=== PATIENT | male | born 1975 | race Caucasian/White ===

== ENCOUNTER → 2020-05-20 13:07 | Outpatient (BNVA) | payer MEDICAID, SELFPAY | PROVIDERS: PCP Internal Medicine; Visit Provider Internal Medicine | DX: F11.20 Opioid dependence, uncomplicated (principal) | CPT/HCPCS: 80305; 99212 ==

== ENCOUNTER 2020-05-28 22:52 | Emergency (ER) | payer MEDICAID, SELFPAY ==
[2020-05-28 23:12] VITALS: BP 102/60; BP 118/68; PULSE 75; PULSE 77; RESP 17; TEMP 37; O2SAT 95; O2SAT 99; BMI 28.1
--- NOTE | 2020-05-28 23:22 | ED_ITS ---
HPI - Overdose General Chief Complaint: Overdose Stated Complaint: OVERDOSE,4 MG NARCAN Time Seen by Provider: 05/28/20 23:13 Source: EMS Mode of arrival: EMS Limitations: altered mental status History of Present Illness HPI Narrative: 45-year-old male presents via EMS with overdose, given Narcan. patient reports to use 5 bags of heroin prior to arrival. complaint: accidental overdose Onset (ago): minute(s) ( Just prior to arrival) Intent: unknown Treatments Prior to Arrival: narcan Related Data Home Medications Medication Instructions Recorded Confirmed acetaminophen 650 mg 650 mg PO Q8H 04/06/20 05/20/20 tablet,extended release albuterol sulfate 90 mcg/actuation 2 puff INHALATION Q6H PRN 04/06/20 05/20/20 aerosol inhaler amlodipine 5 mg tablet 5 mg PO DAILY 04/06/20 05/20/20 aspirin 81 mg tablet,delayed 81 mg PO DAILY 04/06/20 05/20/20 release buprenorphine 8 mg-naloxone 2 mg 2 film SUBLINGUAL DAILY 04/06/20 05/20/20 sublingual film clonidine HCl 0.1 mg tablet 0.1 mg PO TID 04/06/20 05/20/20 fluoxetine 60 mg tablet 60 mg PO DAILY 04/06/20 05/20/20 hydroxyzine HCl 25 mg tablet 25 mg PO TID PRN 04/06/20 05/20/20 metformin 1,000 mg tablet 1,000 mg PO BID 04/06/20 05/20/20 mirtazapine 30 mg tablet 30 mg PO BEDTIME 04/06/20 05/20/20 nicotine (polacrilex) 4 mg gum 4 mg BUCCAL Q2H 04/06/20 05/20/20 Previous Rx's Medication Instructions Recorded buprenorphine 8 mg-naloxone 2 mg 2 film SUBLINGUAL DAILY 14 Days 05/20/20 sublingual film #28 ea doxycycline monohydrate 100 mg PO BID 14 Days #28 cap 05/29/20 Allergies Allergy/AdvReac Type Severity Reaction Status Date / Time No Known Allergies Allergy Unverified 03/26/20 19:41 [No Known Allergies*] Review of Systems 2 Review of Systems: Yes Unobtainable due to mental status PMFSH Past Medical History Attestation statement: The following information was validated with the patient. Source: unable to obtain Medical History Opioid use disorder Family History Family History Father Liver problem Diabetes mellitus Kidney problem Heart failure CVD (cardiovascular disease) HTN (hypertension) Paternal Uncle Liver problem HTN (hypertension) Diabetes mellitus Cancer Maternal Aunt Kidney failure HTN (hypertension) Diabetes mellitus Mother No problems noted. Sister No problems noted. Social History Social History Alcohol intake: unknown Smoking Status: Unknown if ever smoked Use of substances other than those prescribed or required for medical reasons: Yes Substance Use Type: Heroin Substance Use Frequency: Chronic Longstanding Last Used Substance: Just Prior to Admission Advance Directives: No Advance Directives Information Provided: No Physical Exam Vital Signs: Vital Signs: Last Vital Signs Temp 98.6 F 05/29/20 00:00 Pulse 69 05/29/20 00:00 Resp 14 05/29/20 00:00 BP 108/62 05/29/20 00:00 Pulse Ox 95 05/29/20 00:00 Body Mass Index 28.1 Appearance: Alert. No acute distress. Eyes: Pupils equal pinpoint, round and reactive to light. ENT: Pharynx normal. Neck: Normal inspection. Neck supple. CVS: Normal heart rate and rhythm. Pulses normal. Respiratory: No respiratory distress. Breath sounds normal. Abdomen: Soft and nontender. Skin: Skin warm and dry. Normal skin color. Normal skin turgor. Extremities: No lower extremity edema. Neuro: No motor deficit. No sensory deficit. Course Course Course Narrative: 45-year-old male opioid overdose received 4 mg of Narcan on transit, alert with palpation, order for IV Narcan. Patient does admit to using 5 bags of heroin. Patient does have 3 wounds on the left medial forearm, 2 open, 1 draining abscess, these wounds are chronic and he was treated here on March 15, 2020 and send to [facility]. He has been seen by Dr Kyle on May 20 which stated that he has been doing well on Suboxone. We will order CBC, Chem 7, give Zosyn IV. At 1:11 a.m. patient is alert oriented x4, answering questions politely and appropriately, Blood pressure 105/70, heart rate 79, respiration rate 18 even unlabored, able to eat and drink without difficulty. he was given information for detox facilities, we will refer him to Wound Care for his chronic wounds. He will be discharged with p.o. doxycycline. Patient verbalizes understanding of and agrees to plan of care to discharge home. MDM - Overdose Differential Diagnosis Differential diagnosis: Likely poisoning by opiate or related narcotic and drug overdose Medical Records Attestation: I reviewed the patient's medical records. Lab Data Attestation: I reviewed the patient's lab results. Result diagrams: 05/29/20 00:06 05/29/20 00:06 Labs: Lab Results 05/29/20 05/29/20 Range/Units 00:06 00:06 WBC 3.2 L (4.8-10.8) X10*3/uL RBC 3.95 L (4.60-5.80) X10*6/uL Hgb 11.4 L (14.0-18.0) g/dl Hct 34.8 L (42-52) % MCV 88.1 (80-98) fL MCH 28.9 (27.0-33.0) pg MCHC 32.8 (31.0-36.0) g/dl RDW 14.9 (11.0-16.0) % Plt Count 90 L (160-400) X10*3/uL MPV 10.1 (9.4-12.4) fL Immature Gran % (Auto) 0.3 (0.0-0.4) % Neut % (Auto) 61.5 (45-73) % Lymph % (Auto) 23.9 (20-40) % [place] % (Auto) 11.8 H (2-11) % Eos % (Auto) 2.5 (0-4) % Baso % (Auto) 0.0 (0-2) % Lymph # (Auto) 0.8 L (1.2-4.9) X10*3/uL [place] # (Auto) 0.4 (0.1-1.2) X10*3/uL Eos # (Auto) 0.1 (0.0-0.4) X10*3/uL Baso # (Auto) 0.0 (0.0-0.2) X10*3/uL Abs Immat Gran (auto) 0.01 (0.00-0.03) X10*3/uL Absolute Neuts (auto) 2.0 (2.0-8.3) X10*3/uL Absolute Nucleated RBC 0.000 (0.0-0.012) X10*3/uL Nucleated RBC % (auto) 0.0 (0.0-0.2) /100WBC Sodium 141 (135-145) mmol/L Potassium 4.0 (3.3-5.1) mmol/l Chloride 107 (96-108) mmol/L Carbon Dioxide 26 (22-29) mmol/L Anion Gap 12 (12-20) BUN 11 (9-16) mg/dL Creatinine 0.83 (0.5-1.4) mg/dL Estim Creat Clear Calc 133.9 Estimated GFR > 60 Random Glucose 170 H (60-115) mg/dL Calcium 8.2 L (8.4-10.2) mg/dL Discharge Plan Discharge Clinical Impression: Opioid use disorder Patient Disposition: Home, Self-Care Instructions: Wound Infection (ED), Wound Healing and Your Diet (ED), Opioid Use Disorder (ED) Additional Instructions: you were evaluated for accidental heroin overdose. Please consider detox. For your chronic wounds to left forearm please call wound care center for an appointment. WOUND CARE. [phone] [address] Thank you for choosing this emergency department for evaluation. Please follow-up with primary care physician as needed. Return to the emergency department for any new, concerning, or worsening symptoms. Prescriptions: New doxycycline monohydrate 100 mg capsule 100 mg PO BID 14 Days Qty: 28 RF: 0 No Action buprenorphine-naloxone [Suboxone] 8-2 mg film 2 film sublingual DAILY 14 Days Qty: 28 RF: 0 buprenorphine-naloxone [Suboxone] 8-2 mg film 2 film sublingual DAILY RF: 0 fluoxetine 60 mg tablet 60 mg PO DAILY RF: 0 mirtazapine [Remeron] 30 mg tablet 30 mg PO BEDTIME RF: 0 nicotine (polacrilex) [Nicorette] 4 mg gum 4 mg buccal Q2H RF: 0 albuterol sulfate 90 mcg/actuation HFA aerosol inhaler 2 puff inhalation Q6H PRNRF: 0 aspirin [Adult Low Dose Aspirin] 81 mg tablet,delayed release (DR/EC) 81 mg PO DAILY RF: 0 amlodipine 5 mg tablet 5 mg PO DAILY RF: 0 metformin 1,000 mg tablet 1,000 mg PO BID RF: 0 acetaminophen [Tylenol 8 Hour] 650 mg tablet extended release 650 mg PO Q8H RF: 0 clonidine HCl 0.1 mg tablet 0.1 mg PO TID RF: 0 hydroxyzine HCl 25 mg tablet 25 mg PO TID PRNRF: 0
[2020-05-28] MEDS: Naloxone HCl 0.4 MG/ML VIAL IVPUSH (23:56)
[2020-05-28] MEDS: Piperacillin Sodium/Tazobactam 3.375 GM in 0.9 % Sodium Chloride 50 ML IV (23:57)
[2020-05-29] VITALS: BP 108/62; PULSE 69; RESP 14; TEMP 37; O2SAT 95
[2020-05-29 00:14] LABS: MANUAL DIFF FLAG NO
[2020-05-29 00:16] LABS: Eosinophils Absolute Auto 0.1 X10*3/uL (0.0-0.4); Eosinophils Percent Auto 2.5 % (0-4); Hematocrit 34.8 % (42-52); Hemoglobin 11.4 g/dl (14.0-18.0); Imm Gran Abs Auto 0.01 X10*3/uL (0.00-0.03); Imm Gran Pct Auto 0.3 % (0.0-0.4); Lymphocytes Absolute Auto 0.8 X10*3/uL (1.2-4.9); Lymphocytes Percent Auto 23.9 % (20-40); Mean Corpuscular HGB Conc 32.8 g/dl (31.0-36.0); Mean Corpuscular Hemoglobin 28.9 pg (27.0-33.0); Mean Corpuscular Volume 88.1 fL (80-98); Mean Platelet Volume 10.1 fL (9.4-12.4); Monocytes Absolute Auto 0.4 X10*3/uL (0.1-1.2); Monocytes Percent Auto 11.8 % (2-11); Neutrophils Percent Auto 61.5 % (45-73); Red Blood Count 3.95 X10*6/uL (4.60-5.80); Red Cell Distribution Width 14.9 % (11.0-16.0); White Blood Count 3.2 X10*3/uL (4.8-10.8)
[2020-05-29 00:21] LABS: Platelet Count 90 X10*3/uL (160-400)
[2020-05-29 00:39] LABS: Anion Gap 12 (12-20); Blood Urea Nitrogen 11 mg/dL (9-16); Calcium 8.2 mg/dL (8.4-10.2); Carbon Dioxide 26 mmol/L (22-29); Chloride 107 mmol/L (96-108); Creatinine Clr Calc Pharmacy 133.9; Estimated Glomerular Filt Rate > 60; Glucose Random 170 mg/dL (60-115); Sodium 141 mmol/L (135-145)
[2020-05-29 01:34] VITALS: BP 111/54; PULSE 74; RESP 12; O2SAT 92
== END 2020-05-29 01:54 | disposition home or self-care (01) ==
PROVIDERS: Nurse Practitioner Family; Emergency Provider Emergency Medicine Emergency Medical Services; PCP Internal Medicine
DX: T40.1X1A Poisoning by heroin, accidental (unintentional), initial encounter (principal); Y92.9 Unspecified place or not applicable; F11.10 Opioid abuse, uncomplicated; Z71.51 Drug abuse counseling and surveillance of drug abuser; Z79.899 Other long term (current) drug therapy
CPT/HCPCS: 36415; 80048; 85025; 96365; 96375; 99284; 99285; J2543

== ENCOUNTER → 2020-06-03 13:55 | Outpatient (BNVA) | payer MEDICAID, SELFPAY | PROVIDERS: Visit Provider Internal Medicine | DX: F11.20 Opioid dependence, uncomplicated (principal) | CPT/HCPCS: 80305; 99212 ==

== ENCOUNTER 2020-06-13 21:33 | Emergency (ER) | payer MEDICAID, SELFPAY ==
[2020-06-13 21:38] VITALS: BP 160/92; PULSE 97; RESP 18; TEMP 37.3; O2SAT 95; BMI 32.4
--- NOTE | 2020-06-13 22:49 | PC.NURSE ---
PT HAS BILATERAL OPEN AREA TO LOWER ARM FROM INJECTION SITE FROM COCAINE USE. 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
--- NOTE | 2020-06-13 23:02 | ED_ITS ---
HPI - Wound/Laceration General Chief Complaint: Wound/Laceration Stated Complaint: Red Inflamed skin Time Seen by Provider: 06/13/20 22:56 Source: patient Mode of arrival: ambulatory Limitations: no limitations History of Present Illness HPI narrative: 45-year-old male with significant history of substance abuse, abscesses, medication noncompliance presents with multiple abscesses to right and left arm. He has not picked up his medications from his prior visit for similar concerns. Onset (ago): month(s) Patient tetanus UTD: Yes Context: other ( cocaine injection sites) Associated symptoms: pain Related Data Home Medications Medication Instructions Recorded Confirmed acetaminophen 650 mg 650 mg PO Q8H 04/06/20 05/20/20 tablet,extended release albuterol sulfate 90 mcg/actuation 2 puff INHALATION Q6H PRN 04/06/20 05/20/20 aerosol inhaler amlodipine 5 mg tablet 5 mg PO DAILY 04/06/20 05/20/20 aspirin 81 mg tablet,delayed 81 mg PO DAILY 04/06/20 05/20/20 release buprenorphine 8 mg-naloxone 2 mg 2 film SUBLINGUAL DAILY 04/06/20 05/20/20 sublingual film clonidine HCl 0.1 mg tablet 0.1 mg PO TID 04/06/20 05/20/20 fluoxetine 60 mg tablet 60 mg PO DAILY 04/06/20 05/20/20 hydroxyzine HCl 25 mg tablet 25 mg PO TID PRN 04/06/20 05/20/20 metformin 1,000 mg tablet 1,000 mg PO BID 04/06/20 05/20/20 mirtazapine 30 mg tablet 30 mg PO BEDTIME 04/06/20 05/20/20 nicotine (polacrilex) 4 mg gum 4 mg BUCCAL Q2H 04/06/20 05/20/20 Previous Rx's Medication Instructions Recorded doxycycline monohydrate 100 mg PO BID 14 Days #28 cap 05/29/20 buprenorphine 8 mg-naloxone 2 mg 2 film SUBLINGUAL DAILY 14 Days 06/03/20 sublingual film #28 ea doxycycline monohydrate 100 mg PO BID 14 Days #28 tab 06/13/20 Allergies Allergy/AdvReac Type Severity Reaction Status Date / Time No Known Allergies Allergy Verified 06/13/20 21:38 [No Known Allergies*] Review of Systems Review of Systems: Constitutional: No Fever, No Chills ENT/Mouth: No Ear Pain, No Hoarseness, No sore throat Eyes: No Eye Pain, No Swelling, No Redness, No Foreign Body Cardiovascular: No Chest Pain, No SOB Respiratory: No Cough, No Dyspnea Gastrointestinal: No Nausea, No Vomiting, No Diarrhea, No abdominal Pain Genitourinary: No Dysuria, No Hematuria Musculoskeletal: positive joint pain, No Myalgias, No Joint Swelling Skin: multiple skin wounds and abscesses from injection sites, No rash Neuro: No Weakness, No Numbness, No Paresthesias, No Loss of Consciousness, No Dizziness, No Headache Psych: No Anxiety/Panic, No Depression Heme/Lymph: no easy bruising, no Lymphadenopathy Endocrine: No Polyuria, No Polydipsia Yes all other systems are reviewed and are negative [facility] Past Medical History Attestation statement: The following information was validated with the patient. Source: old records reviewed Medical History Advanced hepatic cirrhosis Anxiety Depression Diabetes HTN (hypertension) Opioid use disorder Family History Family History Father Liver problem Diabetes mellitus Kidney problem Heart failure CVD (cardiovascular disease) HTN (hypertension) Paternal Uncle Liver problem HTN (hypertension) Diabetes mellitus Cancer Maternal Aunt Kidney failure HTN (hypertension) Diabetes mellitus Mother No problems noted. Sister No problems noted. Social History Social History Alcohol intake: unknown Smoking Status: Unknown if ever smoked Substance Use Type: Heroin Advance Directives: No Advance Directives Information Provided: No Physical Exam Vital Signs: Vital Signs: Last Vital Signs Temp 99.2 F 06/13/20 21:38 Pulse 97 06/13/20 21:38 Resp 18 06/13/20 21:38 BP 160/92 H 06/13/20 21:38 Pulse Ox 95 06/13/20 21:38 Body Mass Index 32.4 Appearance: Alert. Oriented X3. mild distress. Eyes: Pupils equal, round and reactive to light. ENT: Pharynx normal. Neck: Normal inspection. Neck supple. CVS: Normal heart rate and rhythm. Pulses normal. Respiratory: No respiratory distress. Breath sounds normal. Abdomen: Soft and nontender. Skin: multiple abscesses to bilateral forearms with cellulitis Extremities: No lower extremity edema. Neuro: No motor deficit. No sensory deficit. Course Course Course Narrative: 45-year-old male presents with multiple abscesses on bilateral forearms from injecting cocaine. He admits to not taking the medications or picking them up from the pharmacy when he was here on May 28. he also did not report to the wound clinic as directed. He appears nontoxic, is afebrile. He is asking for antibiotics. plan is to treat with doxycycline. Patient verbalized understanding of and agrees to plan of care to discharge home. MDM - Wound/Laceration Differential Diagnosis Differential diagnosis: Likely abscess Medical Records Attestation: I reviewed the patient's medical records. Lab Data Attestation: I reviewed the patient's lab results. Discharge Plan Discharge Clinical Impression: Opioid use disorder, Abscess Patient Disposition: Home, Self-Care Instructions: Cellulitis (ED) Additional Instructions: please take doxycycline as directed. Please consider detox. Thank you for choosing this emergency department for evaluation. Please follow-up with primary care physician as needed. Return to the emergency department for any new, concerning, or worsening symptoms. Prescriptions: New doxycycline monohydrate 100 mg tablet 100 mg PO BID 14 Days Qty: 28 RF: 0 No Action doxycycline monohydrate 100 mg capsule 100 mg PO BID 14 Days Qty: 28 RF: 0 buprenorphine-naloxone [Suboxone] 8-2 mg film 2 film sublingual DAILY 14 Days Qty: 28 RF: 0 buprenorphine-naloxone [Suboxone] 8-2 mg film 2 film sublingual DAILY RF: 0 fluoxetine 60 mg tablet 60 mg PO DAILY RF: 0 mirtazapine [Remeron] 30 mg tablet 30 mg PO BEDTIME RF: 0 nicotine (polacrilex) [Nicorette] 4 mg gum 4 mg buccal Q2H RF: 0 albuterol sulfate 90 mcg/actuation HFA aerosol inhaler 2 puff inhalation Q6H PRNRF: 0 aspirin [Adult Low Dose Aspirin] 81 mg tablet,delayed release (DR/EC) 81 mg PO DAILY RF: 0 amlodipine 5 mg tablet 5 mg PO DAILY RF: 0 metformin 1,000 mg tablet 1,000 mg PO BID RF: 0 acetaminophen [Tylenol 8 Hour] 650 mg tablet extended release 650 mg PO Q8H RF: 0 clonidine HCl 0.1 mg tablet 0.1 mg PO TID RF: 0 hydroxyzine HCl 25 mg tablet 25 mg PO TID PRNRF: 0
[2020-06-13 23:31] VITALS: BP 138/89; PULSE 90; RESP 16; TEMP 37.2; O2SAT 99
== END 2020-06-13 23:39 | disposition home or self-care (01) ==
PROVIDERS: Emergency Provider Emergency Medicine Emergency Medical Services; PCP Internal Medicine
DX: L02.414 Cutaneous abscess of left upper limb (principal); L02.413 Cutaneous abscess of right upper limb; F14.10 Cocaine abuse, uncomplicated; Z91.14 Patient's other noncompliance with medication regimen; E11.9 Type 2 diabetes mellitus without complications; I10 Essential (primary) hypertension
CPT/HCPCS: 99283; 99284

== ENCOUNTER → 2020-06-17 14:15 | Outpatient (BNVA) | payer MEDICAID, SELFPAY | PROVIDERS: Visit Provider Internal Medicine | DX: F11.99 Opioid use, unspecified with unspecified opioid-induced disorder (principal) ==

== ENCOUNTER → 2020-07-01 10:46 | Outpatient (BNVA) | payer MEDICAID, SELFPAY | PROVIDERS: Visit Provider Internal Medicine | DX: Z76.89 Persons encountering health services in other specified circumstances (principal) ==

== ENCOUNTER → 2020-07-15 11:05 | Outpatient (BNVA) | payer MEDICAID, SELFPAY | PROVIDERS: Visit Provider Internal Medicine | DX: Z76.89 Persons encountering health services in other specified circumstances (principal) ==

== ENCOUNTER → 2020-07-29 09:57 | Outpatient (BNVA) | payer MEDICAID, SELFPAY | PROVIDERS: Visit Provider Internal Medicine | DX: F11.99 Opioid use, unspecified with unspecified opioid-induced disorder (principal) ==

== ENCOUNTER → 2020-08-19 10:41 | Outpatient (BNVA) | payer MEDICAID, SELFPAY | PROVIDERS: Visit Provider Internal Medicine | DX: Z13.89 Encounter for screening for other disorder (principal) | CPT/HCPCS: 99211 ==

== ENCOUNTER → 2020-09-07 14:33 | Outpatient (BNVA) | payer MEDICAID, SELFPAY | PROVIDERS: Visit Provider Internal Medicine | DX: F11.99 Opioid use, unspecified with unspecified opioid-induced disorder (principal) | CPT/HCPCS: 80305; 99212 ==

== ENCOUNTER 2020-09-13 09:29 | Emergency (ER) | payer MEDICAID, SELFPAY ==
--- NOTE | ~2020-09-13 | CT_ITS ---
EXAMINATION: CT FOREARM WITH CONTRAST, RIGHT CLINICAL INFORMATION: Cellulitis/skin breakdown. Rule out deep abscess. COMPARISON: None TECHNIQUE: Multidetector volumetric imaging of both forearms is performed after administration of 75 mL of Omnipaque 350 IV contrast. Coronal and sagittal reformatted images are obtained and reviewed. This CT examination was performed using dose optimization techniques as appropriate, variously including the following: *Automated exposure control *Adjustment of mA and/or kV according to patient size (this includes techniques or standardized protocols for targeted exams where dose is matched to indication/reason for exam; i.e. extremities or head) *Use of iterative reconstruction technique DLP: 235 mGy-cm FINDINGS: For documentation purposes, the patient's IV is in the left arm. There is a beaded bracelet at the right wrist. There is superficial edema involving the entirety of both forearms. In the right forearm, there is focal ulceration of the dorsal skin, as seen on series 9 image 43. Multiple foci of gas are seen in the subcutaneous tissue, as seen on series 9 image 49. There is no drainable fluid collection at this location. There is prominent skin thickening with prominent edema. At the more proximal forearm, near the elbow there is additional focal prominent soft tissue swelling, at the radial aspect. There is a small collection seen at this location. This measures 1.5 x 0.9 by approximately 0.8 cm. This is best seen on series 11 image 106. Throughout the left forearm there is superficial edema. There is skin irregularity along the peripheral aspect of the midforearm. No soft tissue gas. Prominent edema at this level. There is no drainable fluid collection. At the more proximal forearm near the radial aspect of the elbow there is more focal soft tissue swelling with no drainable collection seen. This is evident on series 7 image 496 and series 12 image 48. There is no deep muscular edema or collection identified in either forearm. There is no fracture. No osseous erosion. Appropriate alignment of both elbows. CT/CT forearm RT w con IMPRESSION: 1. Superficial ulceration at the mid aspect of the right forearm with soft tissue gas seen in the subcutaneous tissues. No drainable fluid collection at this location. 2. Small fluid collection in the subcutaneous tissues at the more proximal aspect of the right forearm near the radial aspect of the elbow. 3. Diffuse soft tissue edema throughout both forearms. No drainable collections on the left.
--- NOTE | ~2020-09-13 | XR_ITS ---
EXAMINATION: XR CHEST CLINICAL INFORMATION: Fever. COMPARISON: None TECHNIQUE: Frontal view of the chest was obtained. FINDINGS: The lungs are well-expanded and clear of acute process. The heart size and pulmonary vascularity is normal. No gross bony abnormality seen. XR/XR chest 1V IMPRESSION: Unremarkable chest exam.
[2020-09-13 09:37] VITALS: BP 133/74; PULSE 98; RESP 16; TEMP 38.2; O2SAT 97; BMI 28.5
--- NOTE | 2020-09-13 10:28 | ECG_ITS ---
Test Reason : WEAKNESS Blood Pressure : / mmHG Vent. Rate : 085 BPM Atrial Rate : 085 BPM P-R Int : 154 ms QRS Dur : 094 ms QT Int : 386 ms P-R-T Axes : 064 069 036 degrees QTc Int : 459 ms Normal sinus rhythm Normal ECG When compared with ECG of 15-FEB-2020 00:05, No significant change was found Referred By: Demar Guerra Electronically Signed By:YOUNG ADAMS
--- NOTE | 2020-09-13 10:28 | ED.SKABFB ---
HPI - Skin/Abscess/Foreign Bdy General Chief complaint: Skin/Abscess/Foreign Body Stated complaint: BOTH ARM INFECTION Time Seen by Provider: 09/13/20 10:27 Source: patient Mode of arrival: ambulatory Limitations: no limitations History of Present Illness HPI narrative: Pleasant but unfortunate 45-year-old male with history of anxiety disorder, depression, diabetes, hypertension and polysubstance abuse by way of injection leading to history of hepatitis status post treatment and advanced hepatic cirrhosis presenting today with complaint of bilateral upper arm wounds and redness going on for past several weeks worsened over past couple days states he has had worsening of the wounds and now redness with feeling of chills, cold sweats and subjective fevers. States last used heroin several hours prior to arrival nasally. States overall he feels unwell. He does report that the wound started after injecting mixture of heroin and cocaine into his bilateral upper extremities which led to skin breakdown and he does intermittently pick at this. MD complaint: rash and abscess/boil Onset (ago): week(s) Tetanus up to date: yes Location: LUE and RUE Severity: moderate Quality: aching and constant Pain Consistency: constant Relieving factors: none Associated symptoms: fever, chills and myalgias Treatments prior to arrival: none Related Data Home Medications Medication Instructions Recorded Confirmed albuterol sulfate 90 mcg/actuation 2 puff INHALATION Q6H PRN 04/06/20 09/13/20 aerosol inhaler amlodipine 5 mg tablet 5 mg PO DAILY 04/06/20 09/13/20 aspirin 81 mg tablet,delayed 81 mg PO DAILY 04/06/20 09/13/20 release buprenorphine 8 mg-naloxone 2 mg 2 film SUBLINGUAL DAILY 04/06/20 09/13/20 sublingual film clonidine HCl 0.1 mg tablet 0.1 mg PO TID 04/06/20 09/13/20 fluoxetine 60 mg tablet 60 mg PO DAILY 04/06/20 09/13/20 hydroxyzine HCl 25 mg tablet 25 mg PO TID PRN 04/06/20 09/13/20 metformin 1,000 mg tablet 1,000 mg PO BID 04/06/20 09/13/20 mirtazapine 30 mg tablet 30 mg PO BEDTIME 04/06/20 09/13/20 nicotine (polacrilex) 4 mg gum 4 mg BUCCAL Q2H 04/06/20 09/13/20 Allergies Allergy/AdvReac Type Severity Reaction Status Date / Time cat dander Allergy Unknown Verified 08/19/20 11:09 house dust AdvReac Unknown Verified 08/19/20 11:09 Review of Systems Review of Systems: Constitutional: No Weight loss, as noted per HPI ENT/Mouth: No Hearing loss, No Ear Pain, No Nasal Congestion, No Sinus Pain, No Hoarseness, No sore throat, No Rhinorrhea, No Swallowing Difficulty Eyes: No Eye Pain, No Swelling, No Redness, No Foreign Body, No Discharge, No Vision Changes Cardiovascular: No Chest Pain, No SOB, No Dyspnea on Exertion, No Orthopnea, No Edema, No Palpitations Respiratory: No Cough, No Sputum, No Wheezing, No Dyspnea Gastrointestinal: No Nausea, No Vomiting, No Diarrhea, No Constipation, No abdominal Pain, No Hematochezia, No Melena Genitourinary: no irregular bleeding, No Dysuria, No Urinary Frequency, No Hematuria, No Urinary Incontinence, No Urgency, No Flank Pain, No Urinary Flow Changes, No Hesitancy Musculoskeletal: No joint pain, No Myalgias, No Joint Swelling Skin: As noted per HPI Neuro: No Weakness, No Numbness, No Paresthesias, No Loss of Consciousness, No Dizziness, No Headache Psych: No Anxiety/Panic, No Depression, No SI/HI/AH/VH Heme/Lymph: No Bruising, No Bleeding,No Lymphadenopathy Endocrine: No Polyuria, No Polydipsia, No Temperature Intolerance Yes all other systems are reviewed and are negative [facility] Past Medical History Medical History Advanced hepatic cirrhosis Anxiety Depression Diabetes HTN (hypertension) Opioid use disorder Family History Family History Father Liver problem Diabetes mellitus Kidney problem Heart failure CVD (cardiovascular disease) HTN (hypertension) Paternal Uncle Liver problem HTN (hypertension) Diabetes mellitus Cancer Maternal Aunt Kidney failure HTN (hypertension) Diabetes mellitus Mother No problems noted. Sister No problems noted. Social History Social History Alcohol intake: current Alcohol intake frequency: does not drink Smoking Status: Current every day smoker Use of substances other than those prescribed or required for medical reasons: Yes Substance Use Type: Crack/Cocaine, Heroin and IV Drugs Substance Use Frequency: Daily Last Used Substance: Hours (ago) Any prior treatment program specific to substance use: Yes Advance Directives: No Advance Directives Information Provided: No Physical Exam Vital Signs: Vital Signs: Last Vital Signs Temp 98.3 F 09/13/20 11:23 Pulse 80 09/13/20 11:23 Resp 14 09/13/20 11:23 BP 101/64 09/13/20 11:23 Pulse Ox 97 09/13/20 11:23 Body Mass Index 28.5 Reviewed Const: General: no acute distress and ill appearing; No intoxicated appearing Nutritional Appearance: average body habitus Orientation/consciousness: patient oriented x3 HENMT: Head: Yes normal to inspection Ears: hearing grossly normal bilaterally Face and sinus: Yes normal facial exam Mouth: Normal oral and palatal mucosa present Eyes: General: appearance normal, both eyes and all related structures Visual Laird: normal visual laird by confrontation Alignment and Position: alignment normal Periorbital: periorbital findings normal Eyelids: Yes eyelids normal Conjunctivae: conjunctival abnormal bilateral conjunctival icterus (mild ) Neck: Neck: Yes normal visual inspection, No positive Brudzinski's sign, No positive Kernig's sign and No tender Thyroid: Thyroid normal Chest: Chest palpation & inspection: normal inspection of the chest Resp: Effort & Inspection: normal respiratory effort Auscultation: clear to auscultation bilaterally Cardio: Jugular venous distension: no JVD Rhythm: regular rhythm Heart sounds: S1 normal heart sound present, S2 normal heart sound present and no murmurs Bruits: no carotid bruits GI: Inspection: Yes normal to inspection Palpation (GI): Soft to palpation Percussion: Yes normal to percussion Auscultation: normal bowel sounds : General: Yes no CVA tenderness Back/Spine/Pelvis: Back: no CVA tenderness Skin: General skin exam: jaundice (Mildly) Neuro: General: patient oriented x3 Extrem: Other: General: Yes full ROM Course Reevaluation(s) Reevaluation #1: 1035 Sepsis focused exam completed directly upon arrival. Workup initiated accordingly including lactic acid and blood cultures. No recent URI symptoms to suggest COVID 19. Will consult vascular for recommendation on imaging. Will treat with broad-spectrum antibiotics. Consultations Consultation #1: 1040 Case discussed with vascular Dr. Santiago recommendation for CT scans and likely will need involvement from Dr. Granados from Ortho given upper extremity involvement. Consultation #2: 1100 Case discussed with [facility] orthopedic on-call there is a question whether plastics needs to be involved in the case will need to be transferred, she will run it by her attending and get back to me. Consultation #3: 0430 Page placed to [facility] transfer line [phone] Transfer line call back will connecting with Medicine Services and call back. Additional Consultation(s): 5909 Case discussed with transfer line call back hospitalist Ericka English accepted care 2 service. Attending Luann Will call back with bed assignment. MDM - Skin/Abscess/Foreign Bdy MDM Narrative Medical decision making narrative: In review 45-year-old male with history of anxiety disorder, depression, diabetes, hypertension and polysubstance abuse by way of injection leading to history of hepatitis status post treatment and advanced hepatic cirrhosis presenting with bilateral upper extremity cellulitis with ulceration status post cocaine and heroin injection having sepsis secondary to this and advanced imaging of the bilateral upper arms with contrast showing superficial ulceration at the mid aspect of the right forearm with soft tissue gas seen in the subcutaneous tissues. No drainable fluid collection at this location. Small fluid collection in the subcutaneous tissues at the more proximal aspect of the right forearm near the radial aspect of the elbow. Diffuse soft tissue edema throughout both forearms. No drainable collections on the left. Case discussed with vascular Dr. Santiago and Orthopedics their recommendation is that patient may require input from Plastic and we do not have coverage here thus recommending that I transfer the patient to appropriate center. Case subsequently discussed with [facility] accepted to medicine and patient transfer to [facility] in stable condition. Copies of labs as well as imaging were provided during transfer images are also uploaded to [facility]. Differential Diagnosis Differential diagnosis: Likely abscess of skin or subcutaneous tissue and cellulitis (Cocaine induced vasculitis/ulceration, cellulitis); Unlikely viral exanthem and herpes zoster Medical Records Attestation: I reviewed the patient's medical records. Lab Data Attestation: I reviewed the patient's lab results. Result diagrams: 09/13/20 10:43 09/13/20 10:47 Labs: Lab Results 09/13/20 09/13/20 09/13/20 Range/Units 10:43 10:45 10:46 WBC 17.3 H (4.8-10.8) X10*3/uL RBC 3.88 L (4.60-5.80) X10*6/uL Hgb 10.7 L (14.0-18.0) g/dl Hct 32.4 L (42-52) % MCV 83.5 (80-98) fL MCH 27.6 (27.0-33.0) pg MCHC 33.0 (31.0-36.0) g/dl RDW 13.6 (11.0-16.0) % Plt Count 118 L D (160-400) X10*3/uL MPV 10.8 (9.4-12.4) fL Immature Gran % (Auto) 1.1 H (0.0-0.4) % Neut % (Auto) 88.1 H (45-73) % Lymph % (Auto) 3.8 L (20-40) % [place] % (Auto) 6.9 (2-11) % Eos % (Auto) 0.0 (0-4) % Baso % (Auto) 0.1 (0-2) % Lymph # (Auto) 0.7 L (1.2-4.9) X10*3/uL [place] # (Auto) 1.2 (0.1-1.2) X10*3/uL Eos # (Auto) 0.0 (0.0-0.4) X10*3/uL Baso # (Auto) 0.0 (0.0-0.2) X10*3/uL Abs Immat Gran (auto) 0.19 H (0.00-0.03) X10*3/uL Absolute Neuts (auto) 15.2 H (2.0-8.3) X10*3/uL Absolute Nucleated RBC 0.000 (0.0-0.012) X10*3/uL Nucleated RBC % (auto) 0.0 (0.0-0.2) /100WBC Smear Tech's Comments VERIFIED PT 21.1 H (10.8-13.0) SEC INR 1.8 H (0.9-1.1) APTT 33.8 (24.1-38.0) SEC Sodium (135-145) mmol/L Potassium (3.3-5.1) mmol/L Chloride (96-108) mmol/L Carbon Dioxide (22-29) mmol/L Anion Gap (12-20) BUN (9-16) mg/dL Creatinine (0.5-1.4) mg/dL Estim Creat Clear Calc Estimated GFR Random Glucose (60-115) mg/dL Lactic Acid (0.5-2.0) mmol/L Calcium (8.4-10.2) mg/dL Total Bilirubin (0.0-1.0) mg/dL AST (5-37) U/L ALT (0-40) U/L Alkaline Phosphatase (39-117) U/L Troponin I High Sens 201.7 H (<3.5-35.0) ng/L Total Protein (6.5-8.0) g/dL Albumin (3.5-5.0) g/dL Urine Color Urine Appearance Urine pH (5.0-8.0) Ur Specific [place] (1.005-1.025) Urine Protein (NEG-TRACE) MG/DL Urine Glucose (UA) (NEG) MG/DL Urine Ketones (NEG) MG/DL Urine Blood (NEG) Urine Nitrite (NEG) Ur Leukocyte Esterase (NEG) Ethyl Alcohol mg/dL Coronavirus (PCR) (Negative) Influenza Type A (PCR) (Negative) Influenza Type B (PCR) (Negative) RSV RNA Qual (PCR) (Negative) 09/13/20 09/13/20 09/13/20 Range/Units 10:46 10:47 10:47 WBC (4.8-10.8) X10*3/uL RBC (4.60-5.80) X10*6/uL Hgb (14.0-18.0) g/dl Hct (42-52) % MCV (80-98) fL MCH (27.0-33.0) pg MCHC (31.0-36.0) g/dl RDW (11.0-16.0) % Plt Count (160-400) X10*3/uL MPV (9.4-12.4) fL Immature Gran % (Auto) (0.0-0.4) % Neut % (Auto) (45-73) % Lymph % (Auto) (20-40) % [place] % (Auto) (2-11) % Eos % (Auto) (0-4) % Baso % (Auto) (0-2) % Lymph # (Auto) (1.2-4.9) X10*3/uL [place] # (Auto) (0.1-1.2) X10*3/uL Eos # (Auto) (0.0-0.4) X10*3/uL Baso # (Auto) (0.0-0.2) X10*3/uL Abs Immat Gran (auto) (0.00-0.03) X10*3/uL Absolute Neuts (auto) (2.0-8.3) X10*3/uL Absolute Nucleated RBC (0.0-0.012) X10*3/uL Nucleated RBC % (auto) (0.0-0.2) /100WBC Smear Tech's Comments PT (10.8-13.0) SEC INR (0.9-1.1) APTT (24.1-38.0) SEC Sodium 130 L (135-145) mmol/L Potassium 4.0 (3.3-5.1) mmol/L Chloride 94 L (96-108) mmol/L Carbon Dioxide 26 (22-29) mmol/L Anion Gap 14 (12-20) BUN 12 (9-16) mg/dL Creatinine 0.82 (0.5-1.4) mg/dL Estim Creat Clear Calc 136.2 Estimated GFR > 60 Random Glucose 229 H (60-115) mg/dL Lactic Acid 1.5 (0.5-2.0) mmol/L Calcium 8.1 L (8.4-10.2) mg/dL Total Bilirubin 1.6 H (0.0-1.0) mg/dL AST 55 H (5-37) U/L ALT 32 (0-40) U/L Alkaline Phosphatase 103 (39-117) U/L Troponin I High Sens (<3.5-35.0) ng/L Total Protein 7.3 (6.5-8.0) g/dL Albumin 3.3 L (3.5-5.0) g/dL Urine Color Urine Appearance Urine pH (5.0-8.0) Ur Specific [place] (1.005-1.025) Urine Protein (NEG-TRACE) MG/DL Urine Glucose (UA) (NEG) MG/DL Urine Ketones (NEG) MG/DL Urine Blood (NEG) Urine Nitrite (NEG) Ur Leukocyte Esterase (NEG) Ethyl Alcohol < 10 mg/dL Coronavirus (PCR) (Negative) Influenza Type A (PCR) (Negative) Influenza Type B (PCR) (Negative) RSV RNA Qual (PCR) (Negative) 09/13/20 09/13/20 Range/Units 11:11 14:23 WBC (4.8-10.8) X10*3/uL RBC (4.60-5.80) X10*6/uL Hgb (14.0-18.0) g/dl Hct (42-52) % MCV (80-98) fL MCH (27.0-33.0) pg MCHC (31.0-36.0) g/dl RDW (11.0-16.0) % Plt Count (160-400) X10*3/uL MPV (9.4-12.4) fL Immature Gran % (Auto) (0.0-0.4) % Neut % (Auto) (45-73) % Lymph % (Auto) (20-40) % [place] % (Auto) (2-11) % Eos % (Auto) (0-4) % Baso % (Auto) (0-2) % Lymph # (Auto) (1.2-4.9) X10*3/uL [place] # (Auto) (0.1-1.2) X10*3/uL Eos # (Auto) (0.0-0.4) X10*3/uL Baso # (Auto) (0.0-0.2) X10*3/uL Abs Immat Gran (auto) (0.00-0.03) X10*3/uL Absolute Neuts (auto) (2.0-8.3) X10*3/uL Absolute Nucleated RBC (0.0-0.012) X10*3/uL Nucleated RBC % (auto) (0.0-0.2) /100WBC Smear Tech's Comments PT (10.8-13.0) SEC INR (0.9-1.1) APTT (24.1-38.0) SEC Sodium (135-145) mmol/L Potassium (3.3-5.1) mmol/L Chloride (96-108) mmol/L Carbon Dioxide (22-29) mmol/L Anion Gap (12-20) BUN (9-16) mg/dL Creatinine (0.5-1.4) mg/dL Estim Creat Clear Calc Estimated GFR Random Glucose (60-115) mg/dL Lactic Acid (0.5-2.0) mmol/L Calcium (8.4-10.2) mg/dL Total Bilirubin (0.0-1.0) mg/dL AST (5-37) U/L ALT (0-40) U/L Alkaline Phosphatase (39-117) U/L Troponin I High Sens (<3.5-35.0) ng/L Total Protein (6.5-8.0) g/dL Albumin (3.5-5.0) g/dL Urine Color DARK YELLOW Urine Appearance CLEAR Urine pH 7.0 (5.0-8.0) Ur Specific [place] <= 1.005 (1.005-1.025) Urine Protein NEG (NEG-TRACE) MG/DL Urine Glucose (UA) NEG (NEG) MG/DL Urine Ketones NEG (NEG) MG/DL Urine Blood 1+ H (NEG) Urine Nitrite NEG (NEG) Ur Leukocyte Esterase NEG (NEG) Ethyl Alcohol mg/dL Coronavirus (PCR) NEGATIVE (Negative) Influenza Type A (PCR) NEGATIVE (Negative) Influenza Type B (PCR) NEGATIVE (Negative) RSV RNA Qual (PCR) NEGATIVE (Negative) Imaging Data Bilateral arm CT with IV contrast: Radiologist's impression: [address] Scan ReportSigned Patient: Elmer Tesfaye R#: [id number]: 1975Acct:[id number]/Sex: 45 / MADM Date: 09/13/20Loc: EDAttending Dr: Ordering Physician: Demar Guerra NP Date of Service: 09/13/20 Procedure(s): CT forearm RT w con Accession Number(s): [id number] cc: Demar Guerra CRYSTAL MOUNTER~ EXAMINATION: CT FOREARM WITH CONTRAST, RIGHT CLINICAL INFORMATION: Cellulitis/skin breakdown. Rule out deep abscess. COMPARISON: None TECHNIQUE: Multidetector volumetric imaging of both forearms is performed after administration of 75 mL of Omnipaque 350 IV contrast. Coronal and sagittal reformatted images are obtained and reviewed. This CT examination was performed using dose optimization techniques as appropriate, variously including the following: *Automated exposure control *Adjustment of mA and/or kV according to patient size (this includes techniques or standardized protocols for targeted exams where dose is matched to indication/reason for exam; i.e. extremities or head) *Use of iterative reconstruction technique DLP: 235 mGy-cm FINDINGS: For documentation purposes, the patient's IV is in the left arm. There is a beaded bracelet at the right wrist. There is superficial edema involving the entirety of both forearms. In the right forearm, there is focal ulceration of the dorsal skin, as seen on series 9 image 43. Multiple foci of gas are seen in the subcutaneous tissue, as seen on series 9 image 49. There is no drainable fluid collection at this location. There is prominent skin thickening with prominent edema. At the more proximal forearm, near the elbow there is additional focal prominent soft tissue swelling, at the radial aspect. There is a small collection seen at this location. This measures 1.5 x 0.9 by approximately 0.8 cm. This is best seen on series 11 image 106. Throughout the left forearm there is superficial edema. There is skin irregularity along the peripheral aspect of the midforearm. No soft tissue gas. Prominent edema at this level. There is no drainable fluid collection. At the more proximal forearm near the radial aspect of the elbow there is more focal soft tissue swelling with no drainable collection seen. This is evident on series 7 image 496 and series 12 image 48. There is no deep muscular edema or collection identified in either forearm. There is no fracture. No osseous erosion. Appropriate alignment of both elbows. CT/CT forearm RT w con IMPRESSION: 1. Superficial ulceration at the mid aspect of the right forearm with soft tissue gas seen in the subcutaneous tissues. No drainable fluid collection at this location. 2. Small fluid collection in the subcutaneous tissues at the more proximal aspect of the right forearm near the radial aspect of the elbow. 3. Diffuse soft tissue edema throughout both forearms. No drainable collections on the left. Dictated By:JESÚS SALGADO MDSigned By:<Electronically signed by JESÚS SALGADO MD in OV>09/13/20 1332 DD/ 1101TD/TT: Nut Former: JULI Chest x-ray: Radiologist's impression: [address] [id number] ReportSigned Patient: Elmre Tesfaye JMR#: [id number]: [id number]:[id number]/Sex: 45 / MADM Date: 09/13/20Loc: HO.EDAttending Dr: Ordering Physician: Demar Gurera NP Date of Service: 09/13/20 Procedure(s): XR chest 1V Accession Number(s): [id number] cc: Demar Guerra CRYSTAL MOUNTER~ EXAMINATION: XR CHEST CLINICAL INFORMATION: Fever. COMPARISON: None TECHNIQUE: Frontal view of the chest was obtained. FINDINGS: The lungs are well-expanded and clear of acute process. The heart size and pulmonary vascularity is normal. No gross bony abnormality seen. XR/XR chest 1V IMPRESSION: Unremarkable chest exam. Dictated By:AARON INTERIANO MDSigned By:<Electronically signed by AARON INTERIANO MD in OV>09/13/20 1242 DD/ 1201TD/TT: Nut Former: ALEKSEY ECG Data Interpretation: Normal sinus rhythm Rate 85 NE interval within normal limits QT/QTC interval within normal limits No acute ST segment changes No previous available Discharge Plan Discharge Clinical Impression: Opioid use disorder, Cellulitis, Sepsis, Skin ulceration Patient Disposition: Xfer Other Transfer Details: [facility] Prescriptions: No Action buprenorphine-naloxone [Suboxone] 8-2 mg film 2 film sublingual DAILY RF: 0 fluoxetine 60 mg tablet 60 mg PO DAILY RF: 0 mirtazapine [Remeron] 30 mg tablet 30 mg PO BEDTIME RF: 0 nicotine (polacrilex) [Nicorette] 4 mg gum 4 mg buccal Q2H RF: 0 albuterol sulfate 90 mcg/actuation HFA aerosol inhaler 2 puff inhalation Q6H PRN (Reason: Wheezing) RF: 0 aspirin [Adult Low Dose Aspirin] 81 mg tablet,delayed release (DR/EC) 81 mg PO DAILY RF: 0 amlodipine 5 mg tablet 5 mg PO DAILY RF: 0 metformin 1,000 mg tablet 1,000 mg PO BID RF: 0 clonidine HCl 0.1 mg tablet 0.1 mg PO TID RF: 0 hydroxyzine HCl 25 mg tablet 25 mg PO TID PRN (Reason: Anxiety) RF: 0
[2020-09-13] MEDS: Acetaminophen 325 MG TABLET 975 MG PO (10:52)
[2020-09-13] MEDS: 0.9 % Sodium Chloride 1,000 ML 999 ML IV (10:53)
[2020-09-13 10:59] LABS: Basophils Percent Auto 0.1 % (0-2); Hematocrit 32.4 % (42-52); Hemoglobin 10.7 g/dl (14.0-18.0); Imm Gran Abs Auto 0.19 X10*3/uL (0.00-0.03); Imm Gran Pct Auto 1.1 % (0.0-0.4); Lymphocytes Absolute Auto 0.7 X10*3/uL (1.2-4.9); Lymphocytes Percent Auto 3.8 % (20-40); MANUAL DIFF FLAG SCAN; Mean Corpuscular Hemoglobin 27.6 pg (27.0-33.0); Mean Corpuscular Volume 83.5 fL (80-98); Mean Platelet Volume 10.8 fL (9.4-12.4); Monocytes Absolute Auto 1.2 X10*3/uL (0.1-1.2); Monocytes Percent Auto 6.9 % (2-11); Neutrophils Absolute Auto 15.2 X10*3/uL (2.0-8.3); Neutrophils Percent Auto 88.1 % (45-73); Platelet Count 118 X10*3/uL (160-400); Red Blood Count 3.88 X10*6/uL (4.60-5.80); Red Cell Distribution Width 13.6 % (11.0-16.0); SCAN SMEAR FLAG 1; White Blood Count 17.3 X10*3/uL (4.8-10.8)
[2020-09-13] MEDS: Piperacillin Sodium/Tazobactam 4.5 GM in 0.9 % Sodium Chloride 100 ML IV (11:05)
[2020-09-13 11:11] LABS: INTERNATIONAL NORM RATIO 1.8 (0.9-1.1); Prothrombin Time 21.1 SEC (10.8-13.0)
[2020-09-13 11:13] LABS: Partial Thromboplastin Time 33.8 SEC (24.1-38.0)
[2020-09-13 11:23] VITALS: BP 101/64; PULSE 80; RESP 14; TEMP 36.8; O2SAT 97
[2020-09-13 11:25] LABS: SLIDE REVIEW VERIFIED
[2020-09-13 11:42] LABS: Ethanol < 10 mg/dL
[2020-09-13 11:42] LABS: Lactic Acid 1.5 mmol/L (0.5-2.0)
[2020-09-13 11:46] LABS: Alanine Aminotransferase 32 U/L (0-40); Albumin Level 3.3 g/dL (3.5-5.0); Alkaline Phosphatase 103 U/L (39-117); Anion Gap 14 (12-20); Aspartate Amino Transferase 55 U/L (5-37); Bilirubin Total 1.6 mg/dL (0.0-1.0); Blood Urea Nitrogen 12 mg/dL (9-16); Calcium 8.1 mg/dL (8.4-10.2); Carbon Dioxide 26 mmol/L (22-29); Chloride 94 mmol/L (96-108); Creatinine Clr Calc Pharmacy 136.2; Estimated Glomerular Filt Rate > 60; Glucose Random 229 mg/dL (60-115); Sodium 130 mmol/L (135-145); Total Protein 7.3 g/dL (6.5-8.0)
--- NOTE | 2020-09-13 11:51 | PC.NURSE ---
PT IS CURRENTLY SOMNOLENT, EASILY ROUSED WITH VERBAL AND GENTLE TACTILE STIMULI. REPORTS LAST IV HEROIN USE AT 0800H, PEAKING AT THIS TIME. USES 3 BUNDLES DAILY. SPO2 AND RR WNL. BREATHING EVEN AND NONLABOURED. REMAINS DIAPHORETIC, AFEBRILE. MED REC COMPLETE. REPORTS NOT HAVING TAKEN ANY OF HIS MEDS, INCLUDING SUBOXONE IN 2 MONTHS, PHARMACY AWARE.
[2020-09-13 11:56] LABS: Influenza A PCR NEGATIVE (Negative); Influenza B PCR NEGATIVE (Negative); Resp Syncy Virus RNA Qual PCR NEGATIVE (Negative); SARS COV2 PCR INHOUSE NEGATIVE (Negative)
[2020-09-13 11:58] LABS: Troponin-I High Sensitivity 201.7 ng/L (<3.5-35.0)
--- NOTE | 2020-09-13 12:08 | PC.NURSE ---
katelyn arrrived from pharmacy. pt in ct scan.
[2020-09-13] MEDS: iohexoL 350 MG/ML 75 ML INFUS..BTL IV (13:07)
[2020-09-13 14:39] LABS: Glucose Urine UA NEG (NEG); Leukocyte Esterase Urine NEG (NEG); Nitrite Urine NEG (NEG); Specific Gravity - Urine <= 1.005 (1.005-1.025); Urine Blood 1+ (NEG); Urine Ketones NEG (NEG); Urine Protein NEG (NEG-TRACE)
[2020-09-13 14:43] LABS: Appearance Urine CLEAR; Color Urine DARK YELLOW
[2020-09-13 14:52] LABS: Squamous Epithelial Cell Urine 1+ /LPF; WBC Urine 0 /HPF (0-4)
[2020-09-13 15:01] LABS: Troponin-I High Sensitivity 204.6 ng/L (<3.5-35.0)
[2020-09-13 15:05] LABS: Amphetamine Screen Urine Not Detected (Not Detect); Barbiturates, Urine Not Detected (Not Detect); Benzodiazepines Screen Urine Not Detected (Not Detect); Cannabinoid Screen Urine POSITIVE (Not Detect); Cocaine Screen Urine POSITIVE (Not Detect); Opiate Screen Urine POSITIVE (Not Detect); Phencyclidine Screen Urine Not Detected (Not Detect)
[2020-09-13 15:15] VITALS: BP 100/65; PULSE 69; RESP 16; TEMP 36.9; O2SAT 99
[2020-09-13 15:37] VITALS: BP 100/65; PULSE 71; RESP 18; O2SAT 98
[2020-09-13 16:08] VITALS: BP 102/64
--- NOTE | 2020-09-13 17:02 | PC.NURSE ---
report given to [facility] RN
--- NOTE | 2020-09-13 23:50 | PC.NURSE ---
RECEIVED POSITIVE BLOOD CULTURE RESULTS FROM [facility]. CALLED OVER TO [facility] SPOKE WITH DOMENICA GRAVES RN. REPEATED BACK RESULTS.
== END 2020-09-13 16:40 | disposition other institution (70) ==
PROVIDERS: Nurse Practitioner Primary Care; Emergency Provider Emergency Medicine; PCP Internal Medicine
DX: A41.9 Sepsis, unspecified organism (principal); F11.10 Opioid abuse, uncomplicated; F14.10 Cocaine abuse, uncomplicated; L03.114 Cellulitis of left upper limb; L03.113 Cellulitis of right upper limb; L98.499 Non-pressure chronic ulcer of skin of other sites with unspecified severity; Z20.822 Contact with and (suspected) exposure to COVID-19; E11.9 Type 2 diabetes mellitus without complications; I10 Essential (primary) hypertension; K74.60 Unspecified cirrhosis of liver; Z91.14 Patient's other noncompliance with medication regimen; F17.200 Nicotine dependence, unspecified, uncomplicated
CPT/HCPCS: 0241U; 36415; 71045; 73201; 80053; 80307; 80320; 81001; 83605; 84484; 85025; 85610; 85730; 87040; 87077; 87186; 87205; 93005; 96361; 96365; 96366; 96367; 99284; 99285; J2543; J3370; Q9967

== ENCOUNTER 2020-12-29 10:44 | Inpatient (IN) | payer MEDICAID, SELFPAY ==
--- NOTE | ~2020-12-29 | CT_ITS ---
EXAMINATION: CT HEAD WITHOUT CONTRAST CLINICAL INFORMATION: AMS, low platelets COMPARISON: None TECHNIQUE: Contiguous axial imaging was performed from the skull base to vertex without intravenous administration of contrast. This CT examination was performed using dose optimization techniques as appropriate, variously including the following: *Automated exposure control *Adjustment of mA and/or kV according to patient size (this includes techniques or standardized protocols for targeted exams where dose is matched to indication/reason for exam; i.e. extremities or head) *Use of iterative reconstruction technique DLP: 670 mGy-cm FINDINGS: There is no evidence of acute intracranial hemorrhage or territorial infarction. No abnormal mass effect or midline shift is seen. [place] to white matter differentiation is well preserved. No extra-axial fluid collections are identified. The ventricles are normal in size. There is no abnormal attenuation within the brain parenchyma. The osseous structures and soft tissues are normal. The mastoid air cells and visualized portions of the paranasal sinuses are well aerated. CT/CT head/brain wo con IMPRESSION: No acute intracranial process seen.
--- NOTE | ~2020-12-29 | CT_ITS ---
EXAMINATION: CT CHEST WITHOUT CONTRAST CLINICAL INFORMATION: Sepsis. Fever. COMPARISON: Chest x-ray 12/29/2020. TECHNIQUE: Multidetector volumetric CT imaging of the chest was done. Axial MIP volume rendering provided. Sagittal and coronal reformatted images were obtained. This CT examination was performed using dose optimization techniques as appropriate, variously including the following: *Automated exposure control. *Adjustment of mA and/or kV according to patient size (this includes techniques or standardized protocols for targeted exams where dose is matched to indication/reason for exam; i.e. extremities or head). *Use of iterative reconstruction technique. DLP: 320 mGy-cm FINDINGS: LUNGS: There is normal aeration of the lungs. No focal consolidation. There is no bronchiectasis. The central bronchial airways are open. No interstitial lung disease. Lung Nodules: 1. Irregular linear zxdx-fusw-ldzpuaxtt lung nodule in the anterior right lower lobe measuring 1 x 0.3 (average diameter 6 mm), axial image 341/580 series 8, sagittal image 104/124 series 10. MEDIASTINUM: There is no mediastinal mass or significant lymphadenopathy. Heart size is normal. Status post mitral valve repair. At the anterior lower mediastinum just above the diaphragm, there is an ovoid fluid collection which measures 5.5 x 3.8 x 3 cm. This has density measurement of 14 Hounsfield units, slightly greater than simple fluid. This appears to be at the lower anterior pericardium. Sagittal image 52/124 series 10, axial image 45/70 series 4. PLEURA: There is no pleural effusion. No pleural mass or thickening. AXILLA: No lymphadenopathy. UPPER ABDOMEN: Spleen is enlarged. Spleen measures 17 cm AP. Nodular liver surface suggests underlying cirrhosis. No liver mass. Visualized portions of pancreas, kidneys and adrenal glands are unremarkable. OSSEOUS STRUCTURES: Status post median sternotomy. No acute osseous abnormality. CT/CT chest wo con IMPRESSION: 1. Status post median sternotomy. Status post mitral valve repair. There is a focal fluid collection in the retrosternal soft tissues in the pericardium which is likely postop. This has a density measurement slightly greater than simple fluid. 2. Upbt-ywbt-ckvxsjhsu lung nodule anterior right lower lobe with an average diameter of 6 mm. 2017 Fleischner Society Recommendations for Lung Nodule(s): Follow-Up based on size (average of long- and short-axis diameters). Use most suspicious nodule for followup. Single Solid lung nodule 6-8 mm: In a low-risk patient, recommend a non-contrast Chest CT at 6-12 months, then consider an additional non-contrast Chest CT at 18-24 months. In a high-risk patient, recommend a non-contrast Chest CT at 6-12 months, then another non-contrast Chest CT at 18-24 months. These guidelines do not apply to patients younger than 35 years, immunocompromised patients, and patients with cancer. F/u in patients with significant comorbidities as clinically warranted. For lung cancer screening, adhere to Lung-RADS guidelines. Reference: Radiology. 2017 Yuan; 284(1):228-243 3. Suspect cirrhosis of liver. Splenomegaly.
--- NOTE | ~2020-12-29 | XR_ITS ---
EXAMINATION: XR CHEST CLINICAL INFORMATION: Weakness. COMPARISON: Chest 09/13/2020 TECHNIQUE: 2 views of the chest were obtained. FINDINGS: The lungs are well-expanded and clear. The heart size and pulmonary vascularity is normal. There are median sternotomy sutures and mediastinal opal from previous intervention. No gross bony abnormality seen. XR/XR chest 2V IMPRESSION: Unremarkable chest exam.
--- NOTE | ~2020-12-29 | CT_ITS ---
EXAMINATION: CT ABDOMEN AND PELVIS WITHOUT CONTRAST CLINICAL INFORMATION: Renal failure and urinary tract infection COMPARISON: Previous abdominal ultrasound December [address] from yesterday TECHNIQUE: Multidetector volumetric imaging was performed from the superior aspect of the liver through the pubic symphysis. Sagittal and coronal reformatted images were obtained on the technologist's workstation. This CT examination was performed using dose optimization techniques as appropriate, variously including the following: *Automated exposure control *Adjustment of mA and/or kV according to patient size (this includes techniques or standardized protocols for targeted exams where dose is matched to indication/reason for exam; i.e. extremities or head) *Use of iterative reconstruction technique DLP: 770 mGy-cm FINDINGS: LUNG BASES: There is subsegmental atelectasis at the left lung base. There is a fluid collection seen in the lower anterior pericardium measures 4 6 cm. This is similar to chest CT scan from yesterday. There is a recent median sternotomy. LIVER, GALLBLADDER, AND BILIARY TREE: The liver is cirrhotic. No focal liver lesion is seen. There are varices in the main portal vein is slightly enlarged suggestive of portal hypertension. The gallbladder is upper normal in size. There is high attenuation seen dependently in the gallbladder questionable for small gallstones. The gallbladder wall appears upper normal thickness measuring 3 mm. There is no pericholecystic fluid. There is no biliary duct dilatation. PANCREAS: Unremarkable. SPLEEN: The spleen is enlarged measuring 16 cm in length. ADRENAL GLANDS: Unremarkable. KIDNEYS AND URETERS: The kidneys are prominent, left kidney measuring 13.7 and right 13 cm in length. There is question of cortical thickening, particularly the left and mild stranding of the perinephric fat. No stone or hydronephrosis is seen. BLADDER: Unremarkable. GASTROINTESTINAL TRACT: The small and large bowel are unremarkable. The appendix is unremarkable. ABDOMINAL WALL: No significant hernia is appreciated. LYMPH NODES: Normal. VASCULAR: Upper abdominal varices. Caliber abdominal aorta. PELVIC VISCERA: Unremarkable. OSSEOUS STRUCTURES: There is degenerative disc disease at L5-S1. CT/CT abdomen pelvis wo con IMPRESSION: Cirrhosis, portal hypertension and splenomegaly. Upper normal-size gallbladder and small gallstones. Probable upper normal thickness gallbladder wall. If there is clinical concern for cholecystitis, ultrasound or HIDA scan would be recommended. Prominent kidneys. No stone or hydronephrosis is seen. Stable fluid collection in the lower anterior pericardium compared to chest CT from yesterday.
--- NOTE | ~2020-12-29 | US_ITS ---
EXAMINATION: US RETROPERITONEAL LIMITED (RENAL ONLY) CLINICAL INFORMATION: VINH. COMPARISON: CT abdomen and pelvis from earlier the same day 12/30/2020. Ultrasound abdomen complete 12/27/2018. TECHNIQUE: Real-time imaging of the kidneys. FINDINGS: RIGHT KIDNEY: 12.4 x 5.8 x 5.9 cm (SAG x AP x TRV). The kidney is normal in size, contour, and echogenicity. Renal cortical thickness is normal. No calculi or focal parenchymal lesions. No hydronephrosis. LEFT KIDNEY: 14.2 x 5.6 x 6.7 cm (SAG x AP x TRV). The left kidney appears enlarged and there is left renal cortical thickening. No calculi or focal parenchymal lesions. No hydronephrosis. ADDITIONAL FINDINGS: The gallbladder is dilated measuring 5 x 5.3 x 12 cm. The gallbladder wall is thickened measuring up to 0.5 cm. Spleen is enlarged measuring 16.5 cm. There are multiple varices. US/US renal BI IMPRESSION: No hydronephrosis. The left kidney appears enlarged with renal cortical thickening.
[2020-12-29 11:06] VITALS: BP 107/56; PULSE 121; RESP 20; TEMP 37.2; O2SAT 98; BMI 28.3
--- NOTE | 2020-12-29 11:10 | ECG_ITS ---
Test Reason : WEAKNESS Blood Pressure : / mmHG Vent. Rate : 111 BPM Atrial Rate : 111 BPM P-R Int : 142 ms QRS Dur : 084 ms QT Int : 330 ms P-R-T Axes : 064 091 032 degrees QTc Int : 448 ms Sinus tachycardia Possible Left atrial enlargement Rightward axis Borderline ECG When compared with ECG of 13-SEP-2020 10:46, No significant change was found Referred By: Generic ED Physician Electronically Signed By:Vladimir Amanda
[2020-12-29 12:48] LABS: Hematocrit 39.9 % (42-52); Hemoglobin 12.5 g/dl (14.0-18.0); MANUAL DIFF FLAG SCAN; Mean Corpuscular HGB Conc 31.3 g/dl (31.0-36.0); Mean Corpuscular Hemoglobin 23.6 pg (27.0-33.0); SCAN SMEAR FLAG 1
[2020-12-29 12:50] LABS: Basophils Percent Auto 0.3 % (0-2); Eosinophils Percent Auto 0.3 % (0-4); Imm Gran Abs Auto 0.08 X10*3/uL (0.00-0.03); Imm Gran Pct Auto 0.7 % (0.0-0.4); Lymphocytes Absolute Auto 0.6 X10*3/uL (1.2-4.9); Lymphocytes Percent Auto 4.8 % (20-40); Mean Corpuscular Volume 75.3 fL (80-98); Monocytes Absolute Auto 1.3 X10*3/uL (0.1-1.2); Monocytes Percent Auto 10.9 % (2-11); Red Cell Distribution Width 19.6 % (11.0-16.0)
[2020-12-29 12:52] LABS: PLT ABN DIST 1
[2020-12-29 13:07] LABS: Platelet Count 35 X10*3/uL (160-400); SLIDE REVIEW VERIFIED
[2020-12-29 13:14] LABS: Anion Gap 19 (12-20); Blood Urea Nitrogen 77 mg/dL (9-16); Calcium 8.6 mg/dL (8.4-10.2); Carbon Dioxide 23 mmol/L (22-29); Chloride 93 mmol/L (96-108); Creatinine Clr Calc Pharmacy 43.8; Estimated Glomerular Filt Rate 28; Glucose Random 267 mg/dL (60-115); Sodium 130 mmol/L (135-145)
--- NOTE | 2020-12-29 14:18 | ED.WEAKNESS ---
HPI - Weakness General Chief complaint: Weakness Stated complaint: weakness Time Seen by Provider: 12/29/20 14:03 Source: patient and EMS Mode of arrival: EMS Limitations: no limitations History of Present Illness HPI Narrative: 45 yo male with past medical history of liver cirrhosis, opioid use disorder on methadone currently and denies recent use, anxiety, depression, HTN, s/p mitral valve replacement on eliquis here with complaints of generalized weakness x 5 days with associated subjective fevers, lightheaded, nausea with no vomiting. Denies chest pain, sob, cough, chills, abdominal pain, diarrhea. Of note, [place] [facility] [place] Data Home Medications Medication Instructions Recorded Confirmed albuterol sulfate 90 mcg/actuation 2 puff INHALATION Q6H PRN 04/06/20 09/13/20 aerosol inhaler amlodipine 5 mg tablet 5 mg PO DAILY 04/06/20 09/13/20 aspirin 81 mg tablet,delayed 81 mg PO DAILY 04/06/20 09/13/20 release buprenorphine 8 mg-naloxone 2 mg 2 film SUBLINGUAL DAILY 04/06/20 09/13/20 sublingual film clonidine HCl 0.1 mg tablet 0.1 mg PO TID 04/06/20 09/13/20 fluoxetine 60 mg tablet 60 mg PO DAILY 04/06/20 09/13/20 hydroxyzine HCl 25 mg tablet 25 mg PO TID PRN 04/06/20 09/13/20 metformin 1,000 mg tablet 1,000 mg PO BID 04/06/20 09/13/20 mirtazapine 30 mg tablet 30 mg PO BEDTIME 04/06/20 09/13/20 nicotine (polacrilex) 4 mg gum 4 mg BUCCAL Q2H 04/06/20 09/13/20 Allergies Allergy/AdvReac Type Severity Reaction Status Date / Time cat dander Allergy Unknown Verified 08/19/20 11:09 house dust AdvReac Unknown Verified 08/19/20 11:09 Review of Systems Review of Systems: Yes all other systems are reviewed and are negative Constitutional: Constitutional: Reports no additional constitutional complaints, Denies body ache(s), Denies chills, Reports fever(s) (subjective ), Denies headache(s) and Reports weakness Eyes: Eyes: Reports no additional eye complaints and Denies change in vision ENT: Reports system reviewed and no additional complaints, except as documented, Denies dizziness, Denies headache(s), Denies nasal congestion, Denies nasal discharge and Denies neck pain Cardiovascular: Cardiovascular: Reports no additional cardiovascular complaints, Denies chest pain, Denies leg edema and Denies dyspnea Respiratory: Respiratory: Reports no additional respiratory complaints, Denies cough and Denies dyspnea Gastrointestinal: Gastrointestinal: Reports no additional gastrointestinal complaints, Denies abdominal pain, Denies diarrhea, Reports nausea and Denies vomiting Genitourinary: Genitourinary: Denies urinary incontinence Musculoskeletal: Musculoskeletal: Reports no additional musculoskeletal complaints, Denies back pain, Denies arthralgias, Denies joint swelling, Denies neck pain, Denies numbness and Denies tingling Integumentary/Breasts: Skin/Breast: Reports system reviewed and no additional complaints, except as docu and Denies rash Neurologic: Reports system reviewed and no additional complaints, except as documented, Denies Abnormal speech present, Denies dizziness, Denies headache(s), Denies numbness, Denies tingling and Reports weakness PMFSH Past Medical History Attestation statement: The following information was validated with the patient. Source: old records reviewed and nursing notes reviewed Medical History Advanced hepatic cirrhosis Anxiety Depression Diabetes HTN (hypertension) Opioid use disorder Family History Family History Father Liver problem Diabetes mellitus Kidney problem Heart failure CVD (cardiovascular disease) HTN (hypertension) Paternal Uncle Liver problem HTN (hypertension) Diabetes mellitus Cancer Maternal Aunt Kidney failure HTN (hypertension) Diabetes mellitus Mother No problems noted. Sister No problems noted. Social History Social History Alcohol intake: current Alcohol intake frequency: does not drink Substance Use Type: Crack/Cocaine, Heroin and IV Drugs Advance Directives: No Advance Directives Information Provided: No Physical Exam Vital Signs: Vital Signs: Last Vital Signs Temp 98.9 F 12/29/20 11:06 Pulse 121 H 12/29/20 11:06 Resp 20 12/29/20 11:06 BP 107/56 L 12/29/20 11:06 Pulse Ox 98 12/29/20 11:06 Body Mass Index 28.3 Const: General: cooperative Orientation/consciousness: patient oriented x3 Limitations: no limitations HENMT: Head: Yes normal to inspection Ears: hearing grossly normal bilaterally General nose exam: Normal external nose present Face and sinus: Yes normal facial exam Mouth: Normal oral and palatal mucosa present Throat: Yes posterior oropharynx normal Eyes: General: appearance normal, both eyes and all related structures Pupils: Equal, round and reactive pupils present Neck: Neck: Yes normal visual inspection, Yes full ROM and Yes no lymphadenopathy Chest: Chest palpation & inspection: normal inspection of the chest Resp: Effort & Inspection: normal respiratory effort Auscultation: clear to auscultation bilaterally Cardio: Rate: tachycardic Rhythm: regular rhythm Peripheral pulses: Peripheral pulses 2+ throughout GI: Inspection: Yes normal to inspection Palpation (GI): Soft to palpation and nontender Auscultation: normal bowel sounds Back/Spine/Pelvis: Thoracic/Lumbar Spine: thoracic and lumbar spine normal to inspection Skin: General skin exam: no rashes or lesions noted Neuro: Other: strength 4/5 throughout General: patient oriented x3, no focal motor deficits and normal sensation to monofilament Cranial nerves: Yes CN's II-XII intact bilaterally, Yes Equal, round and reactive pupils present, Yes Bilaterally intact EOM present, Yes Nystagmus not present, Yes Normal facial strength present and Yes Midline tongue present Cognition (Neuro): normal cognition Speech: No Abnormal speech present Gait exam (Neuro): Normal gait present Sensory Exam: Normal double simultaneous stimulation for sensation Extrem: General: Yes normal to inspection, Yes no pedal edema and Yes no calf tenderness Course Course Course Narrative: 45 yo male here with complaints of generalized weakness, subjective fevers, malaise x 5 days. Patient ill appearing, drowsy but rouses to verbal with no focal complaints or neurological deficit. Tachycardic with rate 122 but no fever here. Of note, patient tells me he was [place] [facility] [place]itis, MSSA bacteremia with subsequent valve replacement on eliquis. Will obtain [place] [facility] [place]. Will need labs including blood cultures, lactic acid, covid swab, UA, CXR. 1410-Labs show leukocytosis, worsening thrombocytopenia, VINH. At this time unclear source of infection but will give pptx antibiotics pending w/u. NSB ordered. 1459-Nursing with difficulty obtaining PIV. PIV placed right bicep and labs drawn. Pt more lethargic and with low platelet will check CT head to r/o ICH, ammonia level. 1630-CT head negative. Ammonia 40. D/w with Dr Alvarez after review of chart, [place] [facility] [place] and results to this point. Will check Ct Chest to r/o pericardial effusion/PNA, will do bedside echo. 1700-Bedside echo with Dr Alvarez shows no pericardial effusion. Temp here 100.4. CT chest pending. 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 1745-Sign out Jag PA pending above. MDM - Weakness Differential Diagnosis Differential diagnosis: Likely UTI, anemia, hypoglycemia, rhabdomyolysis, sepsis and dehydration Medical Records Attestation: I reviewed the patient's medical records. Lab Data Attestation: I reviewed the patient's lab results. Result diagrams: 12/29/20 12:42 12/29/20 12:42 Labs: Lab Results 12/29/20 12/29/20 12/29/20 Range/Units 12:42 12:42 14:59 WBC 12.0 H (4.8-10.8) X10*3/uL RBC 5.30 D (4.60-5.80) X10*6/uL Hgb 12.5 L (14.0-18.0) g/dl Hct 39.9 L D (42-52) % MCV 75.3 L (80-98) fL MCH 23.6 L (27.0-33.0) pg MCHC 31.3 (31.0-36.0) g/dl RDW 19.6 H (11.0-16.0) % Plt Count 35 L D (160-400) X10*3/uL MPV Not Reportable Immature Gran % (Auto) 0.7 H (0.0-0.4) % Neut % (Auto) 83.0 H (45-73) % Lymph % (Auto) 4.8 L (20-40) % Pope % (Auto) 10.9 (2-11) % Eos % (Auto) 0.3 (0-4) % Baso % (Auto) 0.3 (0-2) % Lymph # (Auto) 0.6 L (1.2-4.9) X10*3/uL Pope # (Auto) 1.3 H (0.1-1.2) X10*3/uL Eos # (Auto) 0.0 (0.0-0.4) X10*3/uL Baso # (Auto) 0.0 (0.0-0.2) X10*3/uL Abs Immat Gran (auto) 0.08 H (0.00-0.03) X10*3/uL Absolute Neuts (auto) 10.0 H (2.0-8.3) X10*3/uL Absolute Nucleated RBC 0.000 (0.0-0.012) X10*3/uL Nucleated RBC % (auto) 0.0 (0.0-0.2) /100WBC Smear Tech's Comments VERIFIED PT 20.1 H (10.8-13.0) SEC INR 1.7 H (0.9-1.1) Sodium 130 L (135-145) mmol/L Potassium 5.0 D (3.3-5.1) mmol/L Chloride 93 L (96-108) mmol/L Carbon Dioxide 23 (22-29) mmol/L Anion Gap 19 (12-20) BUN 77 H D (9-16) mg/dL Creatinine 2.54 H (0.5-1.4) mg/dL Estim Creat Clear Calc 43.8 Estimated GFR 28 Random Glucose 267 H (60-115) mg/dL Lactic Acid (0.5-2.0) mmol/L Calcium 8.6 D (8.4-10.2) mg/dL Magnesium Total Bilirubin Direct Bilirubin AST ALT Alkaline Phosphatase Ammonia (13-55) umol/L Total Creatine Kinase (38-174) U/L Troponin I High Sens (<3.5-35.0) ng/L B-Natriuretic Peptide (<100) pg/mL Total Protein Albumin Ethyl Alcohol mg/dL COVID-19 ([facility]) (Negative) COVID-19 Clin Com 12/29/20 12/29/20 12/29/20 Range/Units 14:59 14:59 14:59 WBC (4.8-10.8) X10*3/uL RBC (4.60-5.80) X10*6/uL Hgb (14.0-18.0) g/dl Hct (42-52) % MCV (80-98) fL MCH (27.0-33.0) pg MCHC (31.0-36.0) g/dl RDW (11.0-16.0) % Plt Count (160-400) X10*3/uL MPV Immature Gran % (Auto) (0.0-0.4) % Neut % (Auto) (45-73) % Lymph % (Auto) (20-40) % Pope % (Auto) (2-11) % Eos % (Auto) (0-4) % Baso % (Auto) (0-2) % Lymph # (Auto) (1.2-4.9) X10*3/uL Pope # (Auto) (0.1-1.2) X10*3/uL Eos # (Auto) (0.0-0.4) X10*3/uL Baso # (Auto) (0.0-0.2) X10*3/uL Abs Immat Gran (auto) (0.00-0.03) X10*3/uL Absolute Neuts (auto) (2.0-8.3) X10*3/uL Absolute Nucleated RBC (0.0-0.012) X10*3/uL Nucleated RBC % (auto) (0.0-0.2) /100WBC Smear Tech's Comments PT (10.8-13.0) SEC INR (0.9-1.1) Sodium (135-145) mmol/L Potassium (3.3-5.1) mmol/L Chloride (96-108) mmol/L Carbon Dioxide (22-29) mmol/L Anion Gap (12-20) BUN (9-16) mg/dL Creatinine (0.5-1.4) mg/dL Estim Creat Clear Calc Estimated GFR Random Glucose (60-115) mg/dL Lactic Acid 1.7 (0.5-2.0) mmol/L Calcium (8.4-10.2) mg/dL Magnesium Cancelled Total Bilirubin Cancelled Direct Bilirubin Cancelled AST Cancelled ALT Cancelled Alkaline Phosphatase Cancelled Ammonia (13-55) umol/L Total Creatine Kinase (38-174) U/L Troponin I High Sens 11.6 (<3.5-35.0) ng/L B-Natriuretic Peptide (<100) pg/mL Total Protein Cancelled Albumin Cancelled Ethyl Alcohol mg/dL COVID-19 ([facility]) (Negative) COVID-19 Clin Com 12/29/20 12/29/20 12/29/20 Range/Units 14:59 14:59 14:59 WBC (4.8-10.8) X10*3/uL RBC (4.60-5.80) X10*6/uL Hgb (14.0-18.0) g/dl Hct (42-52) % MCV (80-98) fL MCH (27.0-33.0) pg MCHC (31.0-36.0) g/dl RDW (11.0-16.0) % Plt Count (160-400) X10*3/uL MPV Immature Gran % (Auto) (0.0-0.4) % Neut % (Auto) (45-73) % Lymph % (Auto) (20-40) % Pope % (Auto) (2-11) % Eos % (Auto) (0-4) % Baso % (Auto) (0-2) % Lymph # (Auto) (1.2-4.9) X10*3/uL Pope # (Auto) (0.1-1.2) X10*3/uL Eos # (Auto) (0.0-0.4) X10*3/uL Baso # (Auto) (0.0-0.2) X10*3/uL Abs Immat Gran (auto) (0.00-0.03) X10*3/uL Absolute Neuts (auto) (2.0-8.3) X10*3/uL Absolute Nucleated RBC (0.0-0.012) X10*3/uL Nucleated RBC % (auto) (0.0-0.2) /100WBC Smear Tech's Comments PT (10.8-13.0) SEC INR (0.9-1.1) Sodium (135-145) mmol/L Potassium (3.3-5.1) mmol/L Chloride (96-108) mmol/L Carbon Dioxide (22-29) mmol/L Anion Gap (12-20) BUN (9-16) mg/dL Creatinine (0.5-1.4) mg/dL Estim Creat Clear Calc Estimated GFR Random Glucose (60-115) mg/dL Lactic Acid (0.5-2.0) mmol/L Calcium (8.4-10.2) mg/dL Magnesium 2.1 Total Bilirubin 1.3 H Direct Bilirubin 0.7 H AST 45 H ALT 16 Alkaline Phosphatase 102 Ammonia (13-55) umol/L Total Creatine Kinase 20 L (38-174) U/L Troponin I High Sens (<3.5-35.0) ng/L B-Natriuretic Peptide 116 H (<100) pg/mL Total Protein 6.4 L Albumin 3.2 L Ethyl Alcohol mg/dL COVID-19 ([facility]) Negative (Negative) COVID-19 Clin Com See Note 12/29/20 12/29/20 Range/Units 15:55 15:55 WBC (4.8-10.8) X10*3/uL RBC (4.60-5.80) X10*6/uL Hgb (14.0-18.0) g/dl Hct (42-52) % MCV (80-98) fL MCH (27.0-33.0) pg MCHC (31.0-36.0) g/dl RDW (11.0-16.0) % Plt Count (160-400) X10*3/uL MPV Immature Gran % (Auto) (0.0-0.4) % Neut % (Auto) (45-73) % Lymph % (Auto) (20-40) % Pope % (Auto) (2-11) % Eos % (Auto) (0-4) % Baso % (Auto) (0-2) % Lymph # (Auto) (1.2-4.9) X10*3/uL Pope # (Auto) (0.1-1.2) X10*3/uL Eos # (Auto) (0.0-0.4) X10*3/uL Baso # (Auto) (0.0-0.2) X10*3/uL Abs Immat Gran (auto) (0.00-0.03) X10*3/uL Absolute Neuts (auto) (2.0-8.3) X10*3/uL Absolute Nucleated RBC (0.0-0.012) X10*3/uL Nucleated RBC % (auto) (0.0-0.2) /100WBC Smear Tech's Comments PT (10.8-13.0) SEC INR (0.9-1.1) Sodium (135-145) mmol/L Potassium (3.3-5.1) mmol/L Chloride (96-108) mmol/L Carbon Dioxide (22-29) mmol/L Anion Gap (12-20) BUN (9-16) mg/dL Creatinine (0.5-1.4) mg/dL Estim Creat Clear Calc Estimated GFR Random Glucose (60-115) mg/dL Lactic Acid (0.5-2.0) mmol/L Calcium (8.4-10.2) mg/dL Magnesium Total Bilirubin Direct Bilirubin AST ALT Alkaline Phosphatase Ammonia 40 (13-55) umol/L Total Creatine Kinase (38-174) U/L Troponin I High Sens (<3.5-35.0) ng/L B-Natriuretic Peptide (<100) pg/mL Total Protein Albumin Ethyl Alcohol < 10 mg/dL COVID-19 ([facility]) (Negative) COVID-19 Clin Com Imaging Data CT scan - head: Attestation: I personally reviewed and interpreted this imaging study as follows: Radiologist's impression: FINDINGS: There is no evidence of acute intracranial hemorrhage or territorial infarction. No abnormal mass effect or midline shift is seen. Coughlin to white matter differentiation is well preserved. No extra-axial fluid collections are identified. The ventricles are normal in size. There is no abnormal attenuation within the brain parenchyma. The osseous structures and soft tissues are normal. The mastoid air cells and visualized portions of the paranasal sinuses are well aerated. CT/CT head/brain wo con IMPRESSION: No acute intracranial process seen. Chest x-ray: Attestation: I personally reviewed and interpreted this imaging study as follows: Radiologist's impression: [address] [id number] ReportSigned Patient: Elmer Tesfaye R#: [id number]: 1975Acct:[id number]/Sex: 45 / MADM Date: 12/29/20Loc: HO.EDAttending Dr: Ordering Physician: SONIA MOHAMUD NP Date of Service: 12/29/20 Procedure(s): XR chest 2V Accession Number(s): [id number] cc: SONIA MOHAMUD NP~ EXAMINATION: XR CHEST CLINICAL INFORMATION: Weakness. COMPARISON: Chest 09/13/2020 TECHNIQUE: 2 views of the chest were obtained. FINDINGS: The lungs are well-expanded and clear. The heart size and pulmonary vascularity is normal. There are median sternotomy sutures and mediastinal opal from previous intervention. No gross bony abnormality seen. XR/XR chest 2V IMPRESSION: Unremarkable chest exam. Discharge Plan Discharge Prescriptions: No Action buprenorphine-naloxone [Suboxone] 8-2 mg film 2 film sublingual DAILY RF: 0 fluoxetine 60 mg tablet 60 mg PO DAILY RF: 0 mirtazapine [Remeron] 30 mg tablet 30 mg PO BEDTIME RF: 0 nicotine (polacrilex) [Nicorette] 4 mg gum 4 mg buccal Q2H RF: 0 albuterol sulfate 90 mcg/actuation HFA aerosol inhaler 2 puff inhalation Q6H PRN (Reason: Wheezing) RF: 0 aspirin [Adult Low Dose Aspirin] 81 mg tablet,delayed release (DR/EC) 81 mg PO DAILY RF: 0 amlodipine 5 mg tablet 5 mg PO DAILY RF: 0 metformin 1,000 mg tablet 1,000 mg PO BID RF: 0 clonidine HCl 0.1 mg tablet 0.1 mg PO TID RF: 0 hydroxyzine HCl 25 mg tablet 25 mg PO TID PRN (Reason: Anxiety) RF: 0
[2020-12-29] MEDS: 0.9 % Sodium Chloride 1,000 ML 999 ML IV (15:15)
[2020-12-29] MEDS: cefTRIAXone sodium 1 GM in 0.9 % Sodium Chloride 50 ML IV (15:17)
[2020-12-29 15:25] LABS: Lactic Acid 1.7 mmol/L (0.5-2.0)
[2020-12-29 15:28] LABS: INTERNATIONAL NORM RATIO 1.7 (0.9-1.1); Prothrombin Time 20.1 SEC (10.8-13.0)
[2020-12-29 15:30] LABS: COVID-19 Test Negative (Negative); IDNOW Serial# 9DD0AD1C
[2020-12-29 15:47] LABS: B Type Natriuretic Peptide 116 pg/mL (<100); Troponin-I High Sensitivity 11.6 ng/L (<3.5-35.0)
[2020-12-29 15:50] LABS: Alanine Aminotransferase 16 U/L (0-40); Albumin Level 3.2 g/dL (3.5-5.0); Alkaline Phosphatase 102 U/L (39-117); Aspartate Amino Transferase 45 U/L (5-37); Bilirubin Direct 0.7 mg/dL (0.0-0.5); Bilirubin Total 1.3 mg/dL (0.0-1.0); Magnesium 2.1 mg/dL (1.6-2.6); Total Protein 6.4 g/dL (6.5-8.0)
[2020-12-29 16:15] LABS: Ammonia 40 umol/L (13-55)
[2020-12-29 16:20] LABS: Ethanol < 10 mg/dL
[2020-12-29 19:10] VITALS: BP 129/76; PULSE 115; RESP 20; TEMP 37.8; O2SAT 96
--- NOTE | 2020-12-29 19:14 | PC.NURSE ---
REPORT TAKEN FROM BETSY CARTER, FIRST CONTACTWITH PT. A&Ox3 SLOW RESPONSES, APPEARS DROWSY. TACHYCARDIC AND LOW GRADE TEMP. BP WNL. SKIN PWD. SINUS TACH ON MONITOR. URINE SAMPLE COLLECTED AND SENT TO LAB. PENDING RESULTS AND DISPOSITION. PT AWARE OF PLAN OF CARE. OFFERS NO COMPLAINTS AT THIS TIME.
[2020-12-29 19:24] LABS: Glucose Urine UA NEG (NEG); Leukocyte Esterase Urine 3+ (NEG); Nitrite Urine POS (NEG); PH 5.5 (5.0-8.0); UACC Culture Trigger YES; Urine Blood 3+ (NEG); Urine Ketones NEG (NEG); Urine Protein 2+ MG/DL (NEG-TRACE)
[2020-12-29 19:25] LABS: Appearance Urine CLOUDY; Color Urine YELLOW
[2020-12-29 19:43] LABS: Bacteria Urine 2+ /LPF; WBC Urine TNTC /HPF (0-4)
[2020-12-29 19:51] LABS: Amphetamine Screen Urine Not Detected (Not Detect); Barbiturates, Urine Not Detected (Not Detect); Benzodiazepines Screen Urine Not Detected (Not Detect); Cannabinoid Screen Urine POSITIVE (Not Detect); Cocaine Screen Urine POSITIVE (Not Detect); Opiate Screen Urine Not Detected (Not Detect); Phencyclidine Screen Urine Not Detected (Not Detect)
--- NOTE | 2020-12-29 19:54 | PC.NURSE ---
PT POSITIVE FOR UTI. TO BE ADMITTED, AWAITING HOSPITALIST CONSULT. AWARE OF PLAN OF CARE.
--- NOTE | 2020-12-29 20:26 | PHA.MEDREC ---
Pharmacy Consult ? Medication Reconciliation Pharmacy has completed the medication reconciliation.
--- NOTE | 2020-12-29 21:44 | MHC.CM.PN ---
Met with patient pending admission. Pt very sleepy and having trouble staying awake during interview. Pt lives with Maggi Swenson ([phone]), who is his girlfriend. Pt does not have a HCP and is not interested in making one. Pt uses no DME, but does have VNA services for wound care and medication management through [facility]. D/C plan is home with resumption of services. Transportation by family. CM to follow for d/c needs.
[2020-12-29 22:35] VITALS: BP 117/70; PULSE 109; RESP 18; TEMP 37.3; O2SAT 95
[2020-12-29 22:46] VITALS: BP 117/70; PULSE 111; O2SAT 95
--- NOTE | 2020-12-29 23:01 | P.HPHOSP_ITS ---
History of Present Illness Date of Service: 12/29/20 Chief Complaint: generalized weakness 45-year-old male with a past medical history of hypertension, hyperlipidemia, history of liver cirrhosis, opiate dependence on methadone, recent admission to the [facility] for endocarditis and subsequent mitral wall repair status post prosthetic mitral valve-on Eliquis; recently finished antibiotic course. Currently on Lasix and Aldactone at home; presented to the hospital today with a chief complaint of generalized weakness. Patient reported that over the past few days he has been having generalized weakness and tiredness; limiting his ambulation. Mentions that couple days ago his legs gave out and had had a fall. Denies any head strike or loss of consciousness. Denies any chest pain or palpitations. Patient reported that he has urinary frequency/urgency. Complains of subjective chills. Patient mentioned that he had a follow-up visit in the CT surgery/Cardiology Clinic after the surgery and was told everything looks okay. And continue taking same medications. Review of all other systems is negative except mentioned above ER course: Per ER team patient noted to have low-grade temperature, urinalysis was abnormal consistent with UTI-given ceftriaxone. ER team also mentioned that they did a bedside echocardiogram did not notice any pericardial effusion. Did a CT chest did not show any evidence of pneumonia. 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 [facility] Medical History (Updated 01/01/21 @ 14:01 by Audrey Kyle MD) Advanced hepatic cirrhosis Anxiety Bacteremia Depression Diabetes HTN (hypertension) Opioid use disorder Family History Father Liver problem Diabetes mellitus Kidney problem Heart failure CVD (cardiovascular disease) HTN (hypertension) Paternal Uncle Liver problem HTN (hypertension) Diabetes mellitus Cancer Maternal Aunt Kidney failure HTN (hypertension) Diabetes mellitus Mother No problems noted. Sister No problems noted. Social History Household Members: Significant Other Alcohol intake: current Alcohol intake frequency: does not drink Patient Tobacco Use Status: Current everyday Tobacco user Substance Use Type: Former Substance User service: No Current occupational status: unemployed Meds Allergies Allergy/AdvReac Type Severity Reaction Status Date / Time cat dander Allergy Unknown Verified 08/19/20 11:09 house dust AdvReac Unknown Verified 08/19/20 11:09 Active Medications: Current Medications Generic Name Dose Route Start Last Admin Trade Name Isaiah PRN Reason Stop Dose Admin Acetaminophen 650 mg 12/29/20 22:46 Acetaminophen 325 Mg Tablet PO Q6H PRN Pain, Mild (Pain Scale 1-3) Albuterol Sulfate 2 puff 12/29/20 22:51 Albuterol Sulfate 90 Mcg 8 Gm Inhaler INHALE Q6H PRN Wheezing Apixaban 5 mg 12/30/20 09:00 Apixaban 5 Mg Tablet PO BID [facility] Ascorbic Acid 1,000 mg 12/30/20 09:00 Ascorbic Acid 500 Mg Tablet PO DAILY [facility] Aspirin 81 mg 12/30/20 09:00 Aspirin Enteric Coated 81 Mg Tablet.Dr PO DAILY [facility] Baclofen 10 mg 12/30/20 09:00 Baclofen 10 Mg Tablet PO BID [facility] Bisoprolol Fumarate 2.5 mg 12/29/20 23:00 Bisoprolol Fumarate 5 Mg Tablet PO Q OTHER DAY [facility] Gabapentin 300 mg 12/30/20 09:00 Gabapentin 300 Mg Capsule PO TID [facility] Ceftriaxone Sodium 1 gm/ 50 mls @ 100 mls/hr 12/30/20 15:00 Sodium Chloride IV Q24H [facility] Insulin Glargine 20 unit 12/30/20 21:00 Insulin Glargine,Hum.Rec.Anlog 100 Unit/Ml 10 Ml Vial SUBCUT BEDTIME [facility] Insulin Human Lispro 0 unit 12/30/20 07:30 Insulin Lispro 100 Unit/Ml 3 Ml Vial SUBCUT QIDACHS [facility] Protocol Midodrine 10 mg 12/30/20 09:00 Midodrine Hcl 5 Mg Tablet PO TID [facility] Nicotine mg 12/30/20 09:00 Nicotine 14 Mg Patch.[id number] TRANSDERMA DAILY [facility] Pharmacy Consult 1 each 12/29/20 19:48 Consult Rx Perform Med Rec MISCELLANE ONCE PRN Consult order Prednisone 20 mg 12/30/20 09:00 Prednisone 20 Mg Tablet PO DAILY [facility] Sodium Chloride 3 ml 12/30/20 00:00 0.9 % Sodium Chloride Flush 3 Ml Syringe IVFLUSH QSHIFT [facility] Home Medications Medication Instructions Recorded Confirmed Last Taken Type albuterol sulfate 90 mcg/actuation 2 puff INHALATION Q6H PRN 04/06/20 12/29/20 2 Months Ago History aerosol inhaler ~07/16/20 aspirin 81 mg tablet,delayed 81 mg PO DAILY 04/06/20 12/29/20 12/28/20 History release Eliquis 1 tab PO BID 12/29/20 12/29/20 12/28/20 History Lantus Solostar U-100 Insulin 48 unit SUBCUT BEDTIME 12/29/20 12/29/20 12/28/20 History Thera-Tabs M 1 tab PO DAILY 12/29/20 12/29/20 12/28/20 History ascorbic acid (vitamin C) [Vitamin 1,000 mg PO DAILY 12/29/20 12/29/20 12/28/20 History C] baclofen 1 tab PO BID 12/29/20 12/29/20 12/27/20 History bisoprolol fumarate 0.5 tab PO Q OTHER DAY 12/29/20 12/29/20 12/28/20 History gabapentin 3 cap PO TID 12/29/20 12/29/20 12/28/20 History insulin lispro [Humalog KwikPen 12 - 32 unit SUBCUT TID 12/29/20 12/29/20 12/28/20 History Insulin] methadone [Methadone Intensol] 45 mg PO DAILY 12/29/20 12/29/20 12/29/20 History midodrine 2 tab PO TID 12/29/20 12/29/20 12/28/20 History nicotine 1 patch TOPICAL DAILY 12/29/20 12/29/20 12/28/20 History Physical Exam Vital Signs and Narrative: Vital Signs: Last Vital Signs Temp 99.1 F 12/29/20 22:35 Pulse 109 H 12/29/20 22:35 Resp 18 12/29/20 22:35 BP 117/70 12/29/20 22:35 Pulse Ox 95 12/29/20 22:35 Body Mass Index 28.3 Gen: Appears be in no acute distress HEENT: NCAT, Moist mucosa. Pulmonary: mildly coarse breath sounds. CVS: Normal S1-S2 Abdomen: BS+, Soft, distended, Nontender Extremities: Warm well perfused; pedal edema + Neuro: Alert and awake. Results Labs CBC and Chem 7: 01/01/21 08:39 01/01/21 08:39 Labs: Laboratory Results - last 24 hr 12/29/20 12/29/20 12/29/20 12:42 12:42 14:59 MCV 75.3 L MCH 23.6 L MCHC 31.3 RDW 19.6 H Plt Count 35 L D MPV Not Reportable Immature Gran % (Auto) 0.7 H Neut % (Auto) 83.0 H Lymph % (Auto) 4.8 L [place] % (Auto) 10.9 Eos % (Auto) 0.3 Baso % (Auto) 0.3 Lymph # (Auto) 0.6 L [place] # (Auto) 1.3 H Eos # (Auto) 0.0 Baso # (Auto) 0.0 Abs Immat Gran (auto) 0.08 H Absolute Neuts (auto) 10.0 H Absolute Nucleated RBC 0.000 Nucleated RBC % (auto) 0.0 Smear Tech's Comments VERIFIED PT 20.1 H INR 1.7 H Anion Gap 19 Estim Creat Clear Calc 43.8 Estimated GFR 28 Random Glucose 267 H Lactic Acid Calcium 8.6 D Magnesium Total Bilirubin Direct Bilirubin AST ALT Alkaline Phosphatase Ammonia Total Creatine Kinase Troponin I High Sens B-Natriuretic Peptide Total Protein Albumin Urine Color Urine Appearance Urine pH Ur Specific [place] Urine Protein Urine Glucose (UA) Urine Ketones Urine Blood Urine Nitrite Ur Leukocyte Esterase Urine RBC Urine WBC Ur Squamous Epith Cells Urine Bacteria Urine Opiates Screen Ur Barbiturates Screen Ur Phencyclidine Scrn Ur Amphetamines Screen U Benzodiazepines Scrn Urine Cocaine Screen U Marijuana (THC) Screen Ethyl Alcohol COVID-19 ([facility]) COVID-19 Clin Com 12/29/20 12/29/20 12/29/20 14:59 14:59 14:59 MCV MCH MCHC RDW Plt Count MPV Immature Gran % (Auto) Neut % (Auto) Lymph % (Auto) [place] % (Auto) Eos % (Auto) Baso % (Auto) Lymph # (Auto) [place] # (Auto) Eos # (Auto) Baso # (Auto) Abs Immat Gran (auto) Absolute Neuts (auto) Absolute Nucleated RBC Nucleated RBC % (auto) Smear Tech's Comments PT INR Anion Gap Estim Creat Clear Calc Estimated GFR Random Glucose Lactic Acid 1.7 Calcium Magnesium Cancelled Total Bilirubin Cancelled Direct Bilirubin Cancelled AST Cancelled ALT Cancelled Alkaline Phosphatase Cancelled Ammonia Total Creatine Kinase Troponin I High Sens 11.6 B-Natriuretic Peptide Total Protein Cancelled Albumin Cancelled Urine Color Urine Appearance Urine pH Ur Specific [place] Urine Protein Urine Glucose (UA) Urine Ketones Urine Blood Urine Nitrite Ur Leukocyte Esterase Urine RBC Urine WBC Ur Squamous Epith Cells Urine Bacteria Urine Opiates Screen Ur Barbiturates Screen Ur Phencyclidine Scrn Ur Amphetamines Screen U Benzodiazepines Scrn Urine Cocaine Screen U Marijuana (THC) Screen Ethyl Alcohol COVID-19 ([facility]) COVID-19 Clin Com 12/29/20 12/29/20 12/29/20 14:59 14:59 14:59 MCV MCH MCHC RDW Plt Count MPV Immature Gran % (Auto) Neut % (Auto) Lymph % (Auto) [place] % (Auto) Eos % (Auto) Baso % (Auto) Lymph # (Auto) [place] # (Auto) Eos # (Auto) Baso # (Auto) Abs Immat Gran (auto) Absolute Neuts (auto) Absolute Nucleated RBC Nucleated RBC % (auto) Smear Tech's Comments PT INR Anion Gap Estim Creat Clear Calc Estimated GFR Random Glucose Lactic Acid Calcium Magnesium 2.1 Total Bilirubin 1.3 H Direct Bilirubin 0.7 H AST 45 H ALT 16 Alkaline Phosphatase 102 Ammonia Total Creatine Kinase 20 L Troponin I High Sens B-Natriuretic Peptide 116 H Total Protein 6.4 L Albumin 3.2 L Urine Color Urine Appearance Urine pH Ur Specific [place] Urine Protein Urine Glucose (UA) Urine Ketones Urine Blood Urine Nitrite Ur Leukocyte Esterase Urine RBC Urine WBC Ur Squamous Epith Cells Urine Bacteria Urine Opiates Screen Ur Barbiturates Screen Ur Phencyclidine Scrn Ur Amphetamines Screen U Benzodiazepines Scrn Urine Cocaine Screen U Marijuana (THC) Screen Ethyl Alcohol COVID-19 ([facility]) Negative COVID-19 Clin Com See Note 12/29/20 12/29/20 12/29/20 15:55 15:55 19:16 MCV MCH MCHC RDW Plt Count MPV Immature Gran % (Auto) Neut % (Auto) Lymph % (Auto) [place] % (Auto) Eos % (Auto) Baso % (Auto) Lymph # (Auto) [place] # (Auto) Eos # (Auto) Baso # (Auto) Abs Immat Gran (auto) Absolute Neuts (auto) Absolute Nucleated RBC Nucleated RBC % (auto) Smear Tech's Comments PT INR Anion Gap Estim Creat Clear Calc Estimated GFR Random Glucose Lactic Acid Calcium Magnesium Total Bilirubin Direct Bilirubin AST ALT Alkaline Phosphatase Ammonia 40 Total Creatine Kinase Troponin I High Sens B-Natriuretic Peptide Total Protein Albumin Urine Color YELLOW Urine Appearance CLOUDY Urine pH 5.5 Ur Specific [place] 1.010 Urine Protein 2+ H Urine Glucose (UA) NEG Urine Ketones NEG Urine Blood 3+ H Urine Nitrite POS H Ur Leukocyte Esterase 3+ H Urine RBC 10-14 H Urine WBC TNTC H Ur Squamous Epith Cells NONE Urine Bacteria 2+ Urine Opiates Screen Ur Barbiturates Screen Ur Phencyclidine Scrn Ur Amphetamines Screen U Benzodiazepines Scrn Urine Cocaine Screen U Marijuana (THC) Screen Ethyl Alcohol < 10 COVID-19 ([facility]) COVID-19 Clin Com 12/29/20 12/29/20 19:16 19:43 MCV MCH MCHC RDW Plt Count MPV Immature Gran % (Auto) Neut % (Auto) Lymph % (Auto) [place] % (Auto) Eos % (Auto) Baso % (Auto) Lymph # (Auto) [place] # (Auto) Eos # (Auto) Baso # (Auto) Abs Immat Gran (auto) Absolute Neuts (auto) Absolute Nucleated RBC Nucleated RBC % (auto) Smear Tech's Comments PT INR Anion Gap Estim Creat Clear Calc Estimated GFR Random Glucose Lactic Acid Calcium Magnesium Total Bilirubin Direct Bilirubin AST ALT Alkaline Phosphatase Ammonia Total Creatine Kinase Troponin I High Sens 10.0 B-Natriuretic Peptide Total Protein Albumin Urine Color Urine Appearance Urine pH Ur Specific [place] Urine Protein Urine Glucose (UA) Urine Ketones Urine Blood Urine Nitrite Ur Leukocyte Esterase Urine RBC Urine WBC Ur Squamous Epith Cells Urine Bacteria Urine Opiates Screen Not Detected Ur Barbiturates Screen Not Detected Ur Phencyclidine Scrn Not Detected Ur Amphetamines Screen Not Detected U Benzodiazepines Scrn Not Detected Urine Cocaine Screen POSITIVE H U Marijuana (THC) Screen POSITIVE H Ethyl Alcohol COVID-19 ([facility]) COVID-19 Clin Com Imaging Radiologist's Impressions: Impressions Chest X-Ray 12/29/20 14:10 IMPRESSION: Unremarkable chest exam. Head CT 12/29/20 14:58 IMPRESSION: No acute intracranial process seen. Chest CT 12/29/20 16:51 IMPRESSION: 1. Status post median sternotomy. Status post mitral valve repair. There is a focal fluid collection in the retrosternal soft tissues in the pericardium which is likely postop. This has a density measurement slightly greater than simple fluid. 2. Mvtr-[id number]-[id number] lung nodule anterior right lower lobe with an average diameter of 6 mm. 2017 Fleischner Society Recommendations for Lung Nodule(s): Follow-Up based on size (average of long- and short-axis diameters). Use most suspicious nodule for followup. Single Solid lung nodule 6-8 mm: In a low-risk patient, recommend a non-contrast Chest CT at 6-12 months, then consider an additional non-contrast Chest CT at 18-24 months. In a high-risk patient, recommend a non-contrast Chest CT at 6-12 months, then another non-contrast Chest CT at 18-24 months. These guidelines do not apply to patients younger than 35 years, immunocompromised patients, and patients with cancer. F/u in patients with significant comorbidities as clinically warranted. For lung cancer screening, adhere to Lung-RADS guidelines. Reference: Radiology. 2017 Jan; 284(1):228-243 3. Suspect cirrhosis of liver. Splenomegaly. Assessment and Plan (1) UTI (urinary tract infection): Status: Acute 45-year-old male with a past medical history of hypertension, hyp erlipidemia, diabetes, liver cirrhosis, orthostatic hypotension on midodrine, opiate dependence on methadone, history of endocarditis/mitral valve 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 Noted to be in AKA and UTI. Admitted for further management. 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 Will hold home Lasix and Aldactone for now. Avoid nephrotoxins. Nephrology consult. Likely contributing to the patient's generalized weakness. UTI: Continue ceftriaxone. Follow up cultures. Id consult for further recommendations. History of orthostatic hypotension: Patient's blood pressure currently stable. Continue home med noted. Recent history of endocarditis/mitral repair/bioprosthetic mitral wall: Patient currently on Eliquis. Patient reports that he also takes prednisone. Will continue home medications. bedside echocardiogram showed no acute findings per ER team. CT chest showed focal fluid collection in the retrosternal soft tissue-likely postop. Pulmonary nodule: Recommended outpatient PCP follow-up for surveillance CT scans. History of liver cirrhosis/splenomegaly: Continue to monitor. History of diabetes: Continue insulin sliding scale. DVT prophylaxis: Patient on Eliquis Code status: Full code Quality Stroke Does the patient have a stroke diagnosis?: No VTE Prior VTE?: No VTE Risk Level:: Medical - moderate - high VTE Device Contraindication: N/A - Device Ordered VTE Drug Contraindication: N/A - Med Ordered
--- NOTE | 2020-12-29 23:16 | PC.NURSE ---
PT RESTING IN BED EYES CLOSED, NO DISTRESS NOTED. AWAITING BED ASSIGNMENT FOR ADMISSION. AWARE OF PLAN OF CARE.
[2020-12-30] VITALS (8 sets, daily range): BP systolic 101–122; BP diastolic 61–68; PULSE 72–105; RESP 18–22; TEMP 36–37.2; O2SAT 95–99
[2020-12-30] MEDS: 0.9 % Sodium Chloride Flush 3 ML SYRINGE IVFLUSH ×4 (00:18→21:06)
--- NOTE | 2020-12-30 01:35 | PC.NURSE ---
PT AMB TO BATHROOM STEADY GAIT, RETURNED TO BED WITHOUT ISSUE, CONTINUES TO AWAIT BED ASSIGNMENT. AWARE OF PLAN OF CARE.
[2020-12-30 07:16] LABS: Glucose, Whole Blood 269 mg/dL (60-115)
[2020-12-30 07:24] LABS: Basophils Percent Auto 0.1 % (0-2); Eosinophils Absolute Auto 0.1 X10*3/uL (0.0-0.4); Eosinophils Percent Auto 0.7 % (0-4); MANUAL DIFF FLAG SCAN; SCAN SMEAR FLAG 1
[2020-12-30 07:25] LABS: Hematocrit 36.1 % (42-52); Hemoglobin 11.1 g/dl (14.0-18.0); Imm Gran Abs Auto 0.06 X10*3/uL (0.00-0.03); Imm Gran Pct Auto 0.6 % (0.0-0.4); Lymphocytes Absolute Auto 0.5 X10*3/uL (1.2-4.9); Lymphocytes Percent Auto 4.6 % (20-40); Mean Corpuscular HGB Conc 30.7 g/dl (31.0-36.0); Mean Corpuscular Hemoglobin 23.5 pg (27.0-33.0); Mean Corpuscular Volume 76.3 fL (80-98); Monocytes Absolute Auto 1.3 X10*3/uL (0.1-1.2); Monocytes Percent Auto 13.4 % (2-11); Neutrophils Percent Auto 80.6 % (45-73); Red Blood Count 4.73 X10*6/uL (4.60-5.80); Red Cell Distribution Width 19.5 % (11.0-16.0)
[2020-12-30 07:26] LABS: Platelet Count 33 X10*3/uL (160-400)
[2020-12-30 07:27] LABS: PLT ABN DIST 1
[2020-12-30] MEDS: Insulin Lispro 100 UNIT/ML 3 ML VIAL SUBCUT ×4 (07:38→21:05)
[2020-12-30 07:44] LABS: Anion Gap 16 (12-20); Blood Urea Nitrogen 75 mg/dL (9-16); Calcium 8.3 mg/dL (8.4-10.2); Carbon Dioxide 23 mmol/L (22-29); Chloride 99 mmol/L (96-108); Creatinine Clr Calc Pharmacy 50.6; Estimated Glomerular Filt Rate 33; Glucose Random 270 mg/dL (60-115); Potassium 4.9 mmol/L (3.3-5.1); Sodium 133 mmol/L (135-145)
[2020-12-30 07:48] LABS: SLIDE REVIEW VERIFIED
[2020-12-30] MEDS: Gabapentin 300 MG CAPSULE PO ×3 (09:30→21:04)
[2020-12-30] MEDS: Ascorbic Acid 500 MG TABLET 1000 MG PO (09:30)
[2020-12-30] MEDS: predniSONE 20 MG TABLET PO (09:30)
[2020-12-30] MEDS: Aspirin Enteric Coated 81 MG TABLET.DR PO (09:30)
[2020-12-30] MEDS: Nicotine 14 MG PATCH.TD24 TRANSDERMA (09:30)
[2020-12-30] MEDS: Midodrine HCl 5 MG TABLET 10 MG PO ×3 (09:30→21:03)
[2020-12-30] MEDS: Apixaban 5 MG TABLET PO ×2 (09:31→21:04)
[2020-12-30] MEDS: Baclofen 10 MG TABLET PO ×2 (09:31→21:04)
--- NOTE | 2020-12-30 09:49 | P.PNIM_ITS ---
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 Feels better, still has dysuria Review of Systems Gen: no fever Resp: no sob, no cough CV: no chest, no CRAMER, no leg edema GI/: No n/v, no abd pain, Neuro: No confusion Review of Systems: Yes all other systems are reviewed and are negative Physical Exam Vital Signs: Vital Signs: Last Vital Signs Temp 99.0 F 12/30/20 00:00 Pulse 100 12/30/20 09:30 Resp 20 12/30/20 07:38 BP 102/61 12/30/20 09:30 Pulse Ox 95 12/30/20 07:38 Body Mass Index 28.3 Objective Data Current Medications Generic Name Dose Route Start Last Admin Trade Name Freq PRN Reason Stop Dose Admin Acetaminophen 650 mg 12/29/20 22:46 Acetaminophen 325 Mg Tablet PO Q6H PRN Pain, Mild (Pain Scale 1-3) Albuterol Sulfate 2 puff 12/29/20 22:51 Albuterol Sulfate 90 Mcg 8 Gm Inhaler INHALE Q6H PRN Wheezing Apixaban 5 mg 12/30/20 09:00 12/30/20 09:31 Apixaban 5 Mg Tablet PO 5 mg BID REBECCA Administration Ascorbic Acid 1,000 mg 12/30/20 09:00 12/30/20 09:30 Ascorbic Acid 500 Mg Tablet PO 1,000 mg DAILY REBECCA Administration Aspirin 81 mg 12/30/20 09:00 12/30/20 09:30 Aspirin Enteric Coated 81 Mg Tablet. PO 81 mg DAILY REBECCA Administration Baclofen 10 mg 12/30/20 09:00 12/30/20 09:31 Baclofen 10 Mg Tablet PO 10 mg BID REBECCA Administration Bisoprolol Fumarate 2.5 mg 12/30/20 09:00 Bisoprolol Fumarate 5 Mg Tablet PO Q48H REBECCA Gabapentin 300 mg 12/30/20 09:00 12/30/20 09:30 Gabapentin 300 Mg Capsule PO 300 mg TID REBECCA Administration Ceftriaxone Sodium 1 gm/ 50 mls @ 100 mls/hr 12/30/20 15:00 Sodium Chloride IV Q24H [facility] Insulin Glargine 20 unit 12/30/20 21:00 Insulin Glargine,Hum.Rec.Anlog 100 Unit/Ml 10 Ml Vial SUBCUT BEDTIME [facility] Insulin Human Lispro 0 unit 12/30/20 07:30 12/30/20 07:38 Insulin Lispro 100 Unit/Ml 3 Ml Vial SUBCUT 6 unit QIDACHS [facility] Administration Protocol Midodrine 10 mg 12/30/20 09:00 12/30/20 09:30 Midodrine Hcl 5 Mg Tablet PO 10 mg TID [facility] Administration Nicotine 14 mg 12/30/20 09:00 12/30/20 09:30 Nicotine 14 Mg Patch.Td24 TRANSDERMA 14 mg DAILY [facility] Administration Pharmacy Consult 1 each 12/29/20 19:48 Consult Rx Perform Med Rec MISCELLANE ONCE PRN Consult order Prednisone 20 mg 12/30/20 09:00 12/30/20 09:30 Prednisone 20 Mg Tablet PO 20 mg DAILY [facility] Administration Sodium Chloride 3 ml 12/30/20 00:00 12/30/20 00:18 0.9 % Sodium Chloride Flush 3 Ml Syringe IVFLUSH 3 ml QSHIFT [facility] Administration Labs CBC & Chem 7: 12/30/20 06:41 12/30/20 06:41 Labs: Laboratory Results - last 24 hr 12/29/20 12/29/20 12/29/20 12:42 12:42 14:59 WBC 12.0 H RBC 5.30 D Hgb 12.5 L Hct 39.9 L D MCV 75.3 L MCH 23.6 L MCHC 31.3 RDW 19.6 H Plt Count 35 L D MPV Not Reportable Immature Gran % (Auto) 0.7 H Neut % (Auto) 83.0 H Lymph % (Auto) 4.8 L [place] % (Auto) 10.9 Eos % (Auto) 0.3 Baso % (Auto) 0.3 Lymph # (Auto) 0.6 L [place] # (Auto) 1.3 H Eos # (Auto) 0.0 Baso # (Auto) 0.0 Abs Immat Gran (auto) 0.08 H Absolute Neuts (auto) 10.0 H Absolute Nucleated RBC 0.000 Nucleated RBC % (auto) 0.0 Smear Tech's Comments VERIFIED PT 20.1 H INR 1.7 H Sodium 130 L Potassium 5.0 D Chloride 93 L Carbon Dioxide 23 Anion Gap 19 BUN 77 H D Creatinine 2.54 H Estim Creat Clear Calc 43.8 Estimated GFR 28 POC Glucose Random Glucose 267 H Lactic Acid Calcium 8.6 D Magnesium Total Bilirubin Direct Bilirubin AST ALT Alkaline Phosphatase Ammonia Total Creatine Kinase Troponin I High Sens B-Natriuretic Peptide Total Protein Albumin Urine Color Urine Appearance Urine pH Ur Specific [place] Urine Protein Urine Glucose (UA) Urine Ketones Urine Blood Urine Nitrite Ur Leukocyte Esterase Urine RBC Urine WBC Ur Squamous Epith Cells Urine Bacteria Urine Opiates Screen Ur Barbiturates Screen Ur Phencyclidine Scrn Ur Amphetamines Screen U Benzodiazepines Scrn Urine Cocaine Screen U Marijuana (THC) Screen Ethyl Alcohol COVID-19 ([facility]) COVID-19 [employer] 12/29/20 12/29/20 12/29/20 14:59 14:59 14:59 WBC RBC Hgb Hct MCV MCH MCHC RDW Plt Count MPV Immature Gran % (Auto) Neut % (Auto) Lymph % (Auto) [place] % (Auto) Eos % (Auto) Baso % (Auto) Lymph # (Auto) [place] # (Auto) Eos # (Auto) Baso # (Auto) Abs Immat Gran (auto) Absolute Neuts (auto) Absolute Nucleated RBC Nucleated RBC % (auto) Smear Tech's Comments PT INR Sodium Potassium Chloride Carbon Dioxide Anion Gap BUN Creatinine Estim Creat Clear Calc Estimated GFR POC Glucose Random Glucose Lactic Acid 1.7 Calcium Magnesium Cancelled Total Bilirubin Cancelled Direct Bilirubin Cancelled AST Cancelled ALT Cancelled Alkaline Phosphatase Cancelled Ammonia Total Creatine Kinase Troponin I High Sens 11.6 B-Natriuretic Peptide Total Protein Cancelled Albumin Cancelled Urine Color Urine Appearance Urine pH Ur Specific [place] Urine Protein Urine Glucose (UA) Urine Ketones Urine Blood Urine Nitrite Ur Leukocyte Esterase Urine RBC Urine WBC Ur Squamous Epith Cells Urine Bacteria Urine Opiates Screen Ur Barbiturates Screen Ur Phencyclidine Scrn Ur Amphetamines Screen U Benzodiazepines Scrn Urine Cocaine Screen U Marijuana (THC) Screen Ethyl Alcohol COVID-19 ([facility]) COVID-[employer] 12/29/20 12/29/20 12/29/20 14:59 14:59 14:59 WBC RBC Hgb Hct MCV MCH MCHC RDW Plt Count MPV Immature Gran % (Auto) Neut % (Auto) Lymph % (Auto) [place] % (Auto) Eos % (Auto) Baso % (Auto) Lymph # (Auto) [place] # (Auto) Eos # (Auto) Baso # (Auto) Abs Immat Gran (auto) Absolute Neuts (auto) Absolute Nucleated RBC Nucleated RBC % (auto) Smear Tech's Comments PT INR Sodium Potassium Chloride Carbon Dioxide Anion Gap BUN Creatinine Estim Creat Clear Calc Estimated GFR POC Glucose Random Glucose Lactic Acid Calcium Magnesium 2.1 Total Bilirubin 1.3 H Direct Bilirubin 0.7 H AST 45 H ALT 16 Alkaline Phosphatase 102 Ammonia Total Creatine Kinase 20 L Troponin I High Sens B-Natriuretic Peptide 116 H Total Protein 6.4 L Albumin 3.2 L Urine Color Urine Appearance Urine pH Ur Specific [place] Urine Protein Urine Glucose (UA) Urine Ketones Urine Blood Urine Nitrite Ur Leukocyte Esterase Urine RBC Urine WBC Ur Squamous Epith Cells Urine Bacteria Urine Opiates Screen Ur Barbiturates Screen Ur Phencyclidine Scrn Ur Amphetamines Screen U Benzodiazepines Scrn Urine Cocaine Screen U Marijuana (THC) Screen Ethyl Alcohol COVID-19 ([facility]) Negative COVID-19 [employer] See Note 12/29/20 12/29/20 12/29/20 15:55 15:55 19:16 WBC RBC Hgb Hct MCV MCH MCHC RDW Plt Count MPV Immature Gran % (Auto) Neut % (Auto) Lymph % (Auto) [place] % (Auto) Eos % (Auto) Baso % (Auto) Lymph # (Auto) [place] # (Auto) Eos # (Auto) Baso # (Auto) Abs Immat Gran (auto) Absolute Neuts (auto) Absolute Nucleated RBC Nucleated RBC % (auto) Smear Tech's Comments PT INR Sodium Potassium Chloride Carbon Dioxide Anion Gap BUN Creatinine Estim Creat Clear Calc Estimated GFR POC Glucose Random Glucose Lactic Acid Calcium Magnesium Total Bilirubin Direct Bilirubin AST ALT Alkaline Phosphatase Ammonia 40 Total Creatine Kinase Troponin I High Sens B-Natriuretic Peptide Total Protein Albumin Urine Color YELLOW Urine Appearance CLOUDY Urine pH 5.5 Ur Specific [place] 1.010 Urine Protein 2+ H Urine Glucose (UA) NEG Urine Ketones NEG Urine Blood 3+ H Urine Nitrite POS H Ur Leukocyte Esterase 3+ H Urine RBC 10-14 H Urine WBC TNTC H Ur Squamous Epith Cells NONE Urine Bacteria 2+ Urine Opiates Screen Ur Barbiturates Screen Ur Phencyclidine Scrn Ur Amphetamines Screen U Benzodiazepines Scrn Urine Cocaine Screen U Marijuana (THC) Screen Ethyl Alcohol < 10 COVID-19 ([facility]) COVID-19 [employer] 12/29/20 12/29/20 12/30/20 19:16 19:43 06:41 WBC 10.0 RBC 4.73 Hgb 11.1 L Hct 36.1 L MCV 76.3 L MCH 23.5 L MCHC 30.7 L RDW 19.5 H Plt Count 33 L MPV Not Reportable Immature Gran % (Auto) 0.6 H Neut % (Auto) 80.6 H Lymph % (Auto) 4.6 L [place] % (Auto) 13.4 H Eos % (Auto) 0.7 Baso % (Auto) 0.1 Lymph # (Auto) 0.5 L [place] # (Auto) 1.3 H Eos # (Auto) 0.1 Baso # (Auto) 0.0 Abs Immat Gran (auto) 0.06 H Absolute Neuts (auto) 8.0 Absolute Nucleated RBC 0.000 Nucleated RBC % (auto) 0.0 Smear Tech's Comments VERIFIED PT INR Sodium Potassium Chloride Carbon Dioxide Anion Gap BUN Creatinine Estim Creat Clear Calc Estimated GFR POC Glucose Random Glucose Lactic Acid Calcium Magnesium Total Bilirubin Direct Bilirubin AST ALT Alkaline Phosphatase Ammonia Total Creatine Kinase Troponin I High Sens 10.0 B-Natriuretic Peptide Total Protein Albumin Urine Color Urine Appearance Urine pH Ur Specific [place] Urine Protein Urine Glucose (UA) Urine Ketones Urine Blood Urine Nitrite Ur Leukocyte Esterase Urine RBC Urine WBC Ur Squamous Epith Cells Urine Bacteria Urine Opiates Screen Not Detected Ur Barbiturates Screen Not Detected Ur Phencyclidine Scrn Not Detected Ur Amphetamines Screen Not Detected U Benzodiazepines Scrn Not Detected Urine Cocaine Screen POSITIVE H U Marijuana (THC) Screen POSITIVE H Ethyl Alcohol COVID-19 ([facility]) COVID-19 [facility] 12/30/20 12/30/20 06:41 07:11 WBC RBC Hgb Hct MCV MCH MCHC RDW Plt Count MPV Immature Gran % (Auto) Neut % (Auto) Lymph % (Auto) [place] % (Auto) Eos % (Auto) Baso % (Auto) Lymph # (Auto) [place] # (Auto) Eos # (Auto) Baso # (Auto) Abs Immat Gran (auto) Absolute Neuts (auto) Absolute Nucleated RBC Nucleated RBC % (auto) Smear Tech's Comments PT INR Sodium 133 L Potassium 4.9 Chloride 99 Carbon Dioxide 23 Anion Gap 16 BUN 75 H Creatinine 2.20 H Estim Creat Clear Calc 50.6 Estimated GFR 33 POC Glucose 269 H Random Glucose 270 H Lactic Acid Calcium 8.3 L Magnesium Total Bilirubin Direct Bilirubin AST ALT Alkaline Phosphatase Ammonia Total Creatine Kinase Troponin I High Sens B-Natriuretic Peptide Total Protein Albumin Urine Color Urine Appearance Urine pH Ur Specific [place] Urine Protein Urine Glucose (UA) Urine Ketones Urine Blood Urine Nitrite Ur Leukocyte Esterase Urine RBC Urine WBC Ur Squamous Epith Cells Urine Bacteria Urine Opiates Screen Ur Barbiturates Screen Ur Phencyclidine Scrn Ur Amphetamines Screen U Benzodiazepines Scrn Urine Cocaine Screen U Marijuana (THC) Screen Ethyl Alcohol COVID-19 ([facility]) COVID-[address] scan - head: Radiologist's impression: Impressions Chest X-Ray 12/29/20 14:10 IMPRESSION: Unremarkable chest exam. Head CT 12/29/20 14:58 IMPRESSION: No acute intracranial process seen. Chest CT 12/29/20 16:51 IMPRESSION: 1. Status post median sternotomy. Status post mitral valve repair. There is a focal fluid collection in the retrosternal soft tissues in the pericardium which is likely postop. This has a density measurement slightly greater than simple fluid. 2. [id number] lung nodule anterior right lower lobe with an average diameter of 6 mm. 2017 Fleischner Society Recommendations for Lung Nodule(s): Follow-Up based on size (average of long- and short-axis diameters). Use most suspicious nodule for followup. Single Solid lung nodule 6-8 mm: In a low-risk patient, recommend a non-contrast Chest CT at 6-12 months, then consider an additional non-contrast Chest CT at 18-24 months. In a high-risk patient, recommend a non-contrast Chest CT at 6-12 months, then another non-contrast Chest CT at 18-24 months. These guidelines do not apply to patients younger than 35 years, immunocompromised patients, and patients with cancer. F/u in patients with significant comorbidities as clinically warranted. For lung cancer screening, adhere to Lung-RADS guidelines. Reference: Radiology. 2017 Jan; 284(1):228-243 3. Suspect cirrhosis of liver. Splenomegaly. Chest x-ray: Radiologist's impression: Impressions Chest X-Ray 12/29/20 14:10 IMPRESSION: Unremarkable chest exam. Head CT 12/29/20 14:58 IMPRESSION: No acute intracranial process seen. Chest CT 12/29/20 16:51 IMPRESSION: 1. Status post median sternotomy. Status post mitral valve repair. There is a focal fluid collection in the retrosternal soft tissues in the pericardium which is likely postop. This has a density measurement slightly greater than simple fluid. 2. [id number] lung nodule anterior right lower lobe with an average diameter of 6 mm. 2017 Fleischner Society Recommendations for Lung Nodule(s): Follow-Up based on size (average of long- and short-axis diameters). Use most suspicious nodule for followup. Single Solid lung nodule 6-8 mm: In a low-risk patient, recommend a non-contrast Chest CT at 6-12 months, then consider an additional non-contrast Chest CT at 18-24 months. In a high-risk patient, recommend a non-contrast Chest CT at 6-12 months, then another non-contrast Chest CT at 18-24 months. These guidelines do not apply to patients younger than 35 years, immunocompromised patients, and patients with cancer. F/u in patients with significant comorbidities as clinically warranted. For lung cancer screening, adhere to Lung-RADS guidelines. Reference: Radiology. 2017 Jan; 284(1):228-243 3. Suspect cirrhosis of liver. Splenomegaly. Microbiology Microbiology Results: Microbiology 12/29/20 14:59 Blood Culture - Preliminary Blood - Venous 12/29/20 14:59 Blood Culture - Preliminary Blood - Venous Quality Stroke Does the patient have a stroke diagnosis?: No VTE Prior VTE?: No VTE Risk Level:: Medical - moderate - high VTE Device Contraindication: N/A - Device Ordered VTE Drug Contraindication: N/A - Med Ordered Assessment and Plan (1) UTI (urinary tract infection): Status: Acute Assessment and Plan: 45-year-old male with a past medical history of hypertension, hyperlipidemia, diabetes, liver cirrhosis, orthostatic hypotension on midodrine, opiate dependence on methadone, history of endocarditis/mitral valve 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 Noted to be in AKA and UTI. Admitted for f urther management. 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 G et renal US, Nephro consult, repeat lab tomorrow UTI: Continue ceftriaxone. Follow up cultures. Id consult for further recommendations. CT of abdomen and pelvis History of orthostatic hypotension: Patient's blood pressure currently stable. Continue Midodrine Recent history of endocarditis/mitral repair/bioprosthetic mitral valve: Patient currently on Eliquis. Patient reports that he also takes prednisone. Will continue home medications. ED did bedise echo with no acute finding CT chest showed focal fluid collection in the retrosternal soft tissue-likely postop. Pulmonary nodule: Recommended outpatient PCP follow-up for surveillance CT scans. History of liver cirrhosis/splenomegaly: Continue to monitor. History of diabetes: Continue insulin sliding scale. DVT prophylaxis: Patient on Eliquis Code status: Full code
[2020-12-30 12:23] LABS: Glucose, Whole Blood 192 mg/dL (60-115)
--- NOTE | 2020-12-30 12:31 | PM.EVENT ---
Event Note Date of Service: 12/30/20 ( ) Event Note: Pt seen and examined Baseline creat is normal 45-year-old male with a past medical history of hypertension, hyperlipidemia, diabetes, liver cirrhosis, orthostatic hypotension on midodrine, opiate dependence on methadone, history of endocarditis/mitral valve 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 VINH _ ? Overdiuresis R/o Obstruction ESLD UTI Agree with holding Diuiretics No IVF for now Agree with renal USG Will Check Urine studies IV antibiotics as per medical team Will follow thx Dr. Metcalf
--- NOTE | 2020-12-30 13:26 | HO.ADDICT_ITS ---
History of Present Illness Date of Service: 12/30/2020 Chief Complaint: UTI Reason for Consult: opioid use disorder--currently on methadone Requesting physician: Trenton Graham Discussed with referring provider: No Sources of Information: patient interviewed and chart reviewed HPI Narrative: Patient is a 45 year old male with history of liver cirrhosis, endocarditis and mitral valve repair, and opioid use disorder on methadone. Currently medically admitted with VINH and UTI. Of note patient was recently discharged from [facility] about 2 weeks ago following prolonged stay (september until december). Patient seen in room 14 of main ED. he was awake alert pleasant and engaged in interview. Patient reports that since he has been discharged from [facility] he has been engaged in his recovery and continues to attend virtual recovery meetings and is a patient at the [facility] in [place]. He reports that his current dose is 45 mg, and that the was last dosed yesterday (12/29). He denies any withdrawal symptoms at this time. Patient does not appear to be in any acute withdrawal. Discussed positive cocaine on urine drug screen. Patient reports that he has not used any substances since he has been discharged from [facility] and reports that he has been packaging cocaine and that is likely how it got into his system. 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 Past Psychiatric History: Not reviewed Medical Evaluation Reviewed: Yes Personal & Social History: Lives with his cousin Review of Systems Review of Systems patient denies any sx at this time Yes all other systems are reviewed and are negative Diagnostics Vital Signs (24Hr): Vital Signs - 24 hr 12/29/20 19:10 12/29/20 22:35 12/29/20 22:46 Temperature 100.0 F 99.1 F Pulse Rate 115 H 109 H 111 H Respiratory Rate 20 18 Blood Pressure 129/76 117/70 117/70 Pulse Oximetry 96 95 95 12/30/20 00:00 12/30/20 07:38 12/30/20 09:30 Temperature 99.0 F Pulse Rate 105 H 100 100 Respiratory Rate 20 20 Blood Pressure 122/67 102/61 102/61 Pulse Oximetry 95 95 12/30/20 12:00 Temperature Pulse Rate 98 Respiratory Rate 18 Blood Pressure 101/65 Pulse Oximetry 95 Body Mass Index 28.3 Labs Results: 12/30/20 06:41 12/30/20 06:41 Labs: Laboratory Results - last 48 hr 12/29/20 12/29/20 12/29/20 12:42 12:42 14:59 WBC 12.0 H RBC 5.30 D Hgb 12.5 L Hct 39.9 L D MCV 75.3 L MCH 23.6 L MCHC 31.3 RDW 19.6 H Plt Count 35 L D MPV Not Reportable Immature Gran % (Auto) 0.7 H Neut % (Auto) 83.0 H Lymph % (Auto) 4.8 L Knox % (Auto) 10.9 Eos % (Auto) 0.3 Baso % (Auto) 0.3 Lymph # (Auto) 0.6 L Knox # (Auto) 1.3 H Eos # (Auto) 0.0 Baso # (Auto) 0.0 Abs Immat Gran (auto) 0.08 H Absolute Neuts (auto) 10.0 H Absolute Nucleated RBC 0.000 Nucleated RBC % (auto) 0.0 Smear Tech's Comments VERIFIED PT 20.1 H INR 1.7 H Sodium 130 L Potassium 5.0 D Chloride 93 L Carbon Dioxide 23 Anion Gap 19 BUN 77 H D Creatinine 2.54 H Estim Creat Clear Calc 43.8 Estimated GFR 28 POC Glucose Random Glucose 267 H Lactic Acid Calcium 8.6 D Magnesium Total Bilirubin Direct Bilirubin AST ALT Alkaline Phosphatase Ammonia Total Creatine Kinase Troponin I High Sens B-Natriuretic Peptide Total Protein Albumin Urine Color Urine Appearance Urine pH Ur Specific [place] Urine Protein Urine Glucose (UA) Urine Ketones Urine Blood Urine Nitrite Ur Leukocyte Esterase Urine RBC Urine WBC Ur Squamous Epith Cells Urine Bacteria Urine Opiates Screen Ur Barbiturates Screen Ur Phencyclidine Scrn Ur Amphetamines Screen U Benzodiazepines Scrn Urine Cocaine Screen U Marijuana (THC) Screen Ethyl Alcohol COVID-19 ([facility]) COVID-19 Clin Com 12/29/20 12/29/20 12/29/20 14:59 14:59 14:59 WBC RBC Hgb Hct MCV MCH MCHC RDW Plt Count MPV Immature Gran % (Auto) Neut % (Auto) Lymph % (Auto) Knox % (Auto) Eos % (Auto) Baso % (Auto) Lymph # (Auto) Knox # (Auto) Eos # (Auto) Baso # (Auto) Abs Immat Gran (auto) Absolute Neuts (auto) Absolute Nucleated RBC Nucleated RBC % (auto) Smear Tech's Comments PT INR Sodium Potassium Chloride Carbon Dioxide Anion Gap BUN Creatinine Estim Creat Clear Calc Estimated GFR POC Glucose Random Glucose Lactic Acid 1.7 Calcium Magnesium Cancelled Total Bilirubin Cancelled Direct Bilirubin Cancelled AST Cancelled ALT Cancelled Alkaline Phosphatase Cancelled Ammonia Total Creatine Kinase Troponin I High Sens 11.6 B-Natriuretic Peptide Total Protein Cancelled Albumin Cancelled Urine Color Urine Appearance Urine pH Ur Specific [place] Urine Protein Urine Glucose (UA) Urine Ketones Urine Blood Urine Nitrite Ur Leukocyte Esterase Urine RBC Urine WBC Ur Squamous Epith Cells Urine Bacteria Urine Opiates Screen Ur Barbiturates Screen Ur Phencyclidine Scrn Ur Amphetamines Screen U Benzodiazepines Scrn Urine Cocaine Screen U Marijuana (THC) Screen Ethyl Alcohol COVID-19 ([facility]) COVID-[facility] 12/29/20 12/29/20 12/29/20 14:59 14:59 14:59 WBC RBC Hgb Hct MCV MCH MCHC RDW Plt Count MPV Immature Gran % (Auto) Neut % (Auto) Lymph % (Auto) Knox % (Auto) Eos % (Auto) Baso % (Auto) Lymph # (Auto) Knox # (Auto) Eos # (Auto) Baso # (Auto) Abs Immat Gran (auto) Absolute Neuts (auto) Absolute Nucleated RBC Nucleated RBC % (auto) Smear Tech's Comments PT INR Sodium Potassium Chloride Carbon Dioxide Anion Gap BUN Creatinine Estim Creat Clear Calc Estimated GFR POC Glucose Random Glucose Lactic Acid Calcium Magnesium 2.1 Total Bilirubin 1.3 H Direct Bilirubin 0.7 H AST 45 H ALT 16 Alkaline Phosphatase 102 Ammonia Total Creatine Kinase 20 L Troponin I High Sens B-Natriuretic Peptide 116 H Total Protein 6.4 L Albumin 3.2 L Urine Color Urine Appearance Urine pH Ur Specific [place] Urine Protein Urine Glucose (UA) Urine Ketones Urine Blood Urine Nitrite Ur Leukocyte Esterase Urine RBC Urine WBC Ur Squamous Epith Cells Urine Bacteria Urine Opiates Screen Ur Barbiturates Screen Ur Phencyclidine Scrn Ur Amphetamines Screen U Benzodiazepines Scrn Urine Cocaine Screen U Marijuana (THC) Screen Ethyl Alcohol COVID-19 ([facility]) Negative COVID-[facility] See Note 12/29/20 12/29/20 12/29/20 15:55 15:55 19:16 WBC RBC Hgb Hct MCV MCH MCHC RDW Plt Count MPV Immature Gran % (Auto) Neut % (Auto) Lymph % (Auto) Knox % (Auto) Eos % (Auto) Baso % (Auto) Lymph # (Auto) Knox # (Auto) Eos # (Auto) Baso # (Auto) Abs Immat Gran (auto) Absolute Neuts (auto) Absolute Nucleated RBC Nucleated RBC % (auto) Smear Tech's Comments PT INR Sodium Potassium Chloride Carbon Dioxide Anion Gap BUN Creatinine Estim Creat Clear Calc Estimated GFR POC Glucose Random Glucose Lactic Acid Calcium Magnesium Total Bilirubin Direct Bilirubin AST ALT Alkaline Phosphatase Ammonia 40 Total Creatine Kinase Troponin I High Sens B-Natriuretic Peptide Total Protein Albumin Urine Color YELLOW Urine Appearance CLOUDY Urine pH 5.5 Ur Specific [place] 1.010 Urine Protein 2+ H Urine Glucose (UA) NEG Urine Ketones NEG Urine Blood 3+ H Urine Nitrite POS H Ur Leukocyte Esterase 3+ H Urine RBC 10-14 H Urine WBC TNTC H Ur Squamous Epith Cells NONE Urine Bacteria 2+ Urine Opiates Screen Ur Barbiturates Screen Ur Phencyclidine Scrn Ur Amphetamines Screen U Benzodiazepines Scrn Urine Cocaine Screen U Marijuana (THC) Screen Ethyl Alcohol < 10 COVID-19 ([facility]) COVID-19 Clin Com 12/29/20 12/29/20 12/30/20 19:16 19:43 06:41 WBC 10.0 RBC 4.73 Hgb 11.1 L Hct 36.1 L MCV 76.3 L MCH 23.5 L MCHC 30.7 L RDW 19.5 H Plt Count 33 L MPV Not Reportable Immature Gran % (Auto) 0.6 H Neut % (Auto) 80.6 H Lymph % (Auto) 4.6 L Knox % (Auto) 13.4 H Eos % (Auto) 0.7 Baso % (Auto) 0.1 Lymph # (Auto) 0.5 L [place] # (Auto) 1.3 H Eos # (Auto) 0.1 Baso # (Auto) 0.0 Abs Immat Gran (auto) 0.06 H Absolute Neuts (auto) 8.0 Absolute Nucleated RBC 0.000 Nucleated RBC % (auto) 0.0 Smear Tech's Comments VERIFIED PT INR Sodium Potassium Chloride Carbon Dioxide Anion Gap BUN Creatinine Estim Creat Clear Calc Estimated GFR POC Glucose Random Glucose Lactic Acid Calcium Magnesium Total Bilirubin Direct Bilirubin AST ALT Alkaline Phosphatase Ammonia Total Creatine Kinase Troponin I High Sens 10.0 B-Natriuretic Peptide Total Protein Albumin Urine Color Urine Appearance Urine pH Ur Specific [place] Urine Protein Urine Glucose (UA) Urine Ketones Urine Blood Urine Nitrite Ur Leukocyte Esterase Urine RBC Urine WBC Ur Squamous Epith Cells Urine Bacteria Urine Opiates Screen Not Detected Ur Barbiturates Screen Not Detected Ur Phencyclidine Scrn Not Detected Ur Amphetamines Screen Not Detected U Benzodiazepines Scrn Not Detected Urine Cocaine Screen POSITIVE H U Marijuana (THC) Screen POSITIVE H Ethyl Alcohol COVID-19 ([facility]) COVID-19 Clin Com 12/30/20 12/30/20 12/30/20 06:41 07:11 12:17 WBC RBC Hgb Hct MCV MCH MCHC RDW Plt Count MPV Immature Gran % (Auto) Neut % (Auto) Lymph % (Auto) [place] % (Auto) Eos % (Auto) Baso % (Auto) Lymph # (Auto) [place] # (Auto) Eos # (Auto) Baso # (Auto) Abs Immat Gran (auto) Absolute Neuts (auto) Absolute Nucleated RBC Nucleated RBC % (auto) Smear Tech's Comments PT INR Sodium 133 L Potassium 4.9 Chloride 99 Carbon Dioxide 23 Anion Gap 16 BUN 75 H Creatinine 2.20 H Estim Creat Clear Calc 50.6 Estimated GFR 33 POC Glucose 269 H 192 H Random Glucose 270 H Lactic Acid Calcium 8.3 L Magnesium Total Bilirubin Direct Bilirubin AST ALT Alkaline Phosphatase Ammonia Total Creatine Kinase Troponin I High Sens B-Natriuretic Peptide Total Protein Albumin Urine Color Urine Appearance Urine pH Ur Specific [place] Urine Protein Urine Glucose (UA) Urine Ketones Urine Blood Urine Nitrite Ur Leukocyte Esterase Urine RBC Urine WBC Ur Squamous Epith Cells Urine Bacteria Urine Opiates Screen Ur Barbiturates Screen Ur Phencyclidine Scrn Ur Amphetamines Screen U Benzodiazepines Scrn Urine Cocaine Screen U Marijuana (THC) Screen Ethyl Alcohol COVID-19 ([facility]) COVID-19 Clin Com Imaging Radiology Impressions: ITS Impressions Chest X-Ray 12/29/20 14:10 IMPRESSION: Unremarkable chest exam. Head CT 12/29/20 14:58 IMPRESSION: No acute intracranial process seen. Chest CT 12/29/20 16:51 IMPRESSION: 1. Status post median sternotomy. Status post mitral valve repair. There is a focal fluid collection in the retrosternal soft tissues in the pericardium which is likely postop. This has a density measurement slightly greater than simple fluid. 2. Puac-hjps-klywigcpi lung nodule anterior right lower lobe with an average diameter of 6 mm. 2017 Fleischner Society Recommendations for Lung Nodule(s): Follow-Up based on size (average of long- and short-axis diameters). Use most suspicious nodule for followup. Single Solid lung nodule 6-8 mm: In a low-risk patient, recommend a non-contrast Chest CT at 6-12 months, then consider an additional non-contrast Chest CT at 18-24 months. In a high-risk patient, recommend a non-contrast Chest CT at 6-12 months, then another non-contrast Chest CT at 18-24 months. These guidelines do not apply to patients younger than 35 years, immunocompromised patients, and patients with cancer. F/u in patients with significant comorbidities as clinically warranted. For lung cancer screening, adhere to Lung-RADS guidelines. Reference: Radiology. 2017 Jan; 284(1):228-243 3. Suspect cirrhosis of liver. Splenomegaly. Abdomen/Pelvis CT 12/30/20 10:55 IMPRESSION: Cirrhosis, portal hypertension and splenomegaly. Upper normal-size gallbladder and small gallstones. Probable upper normal thickness gallbladder wall. If there is clinical concern for cholecystitis, ultrasound or HIDA scan would be recommended. Prominent kidneys. No stone or hydronephrosis is seen. Stable fluid collection in the lower anterior pericardium compared to chest CT from yesterday. Renal Ultrasound 12/30/20 11:53 IMPRESSION: No hydronephrosis. The left kidney appears enlarged with renal cortical thickening. Mental Status Exam Mental Status Exam Patient Appearance: Well Grooomed and Appropriate Level of Consciousness: Awake, Appropriate and Alert Patient Behavior: Appropriate Mood Description: Calm and Appropriate Affect Description: Appropriate Ability to Follow Directions: Excellent Speech Pattern: Clear Thought Process: Intact Thought Content: positive for Intact Judgement: Good Medications Medications Current Medications Generic Name Dose Route Start Last Admin Trade Name Freq PRN Reason Stop Dose Admin Acetaminophen 650 mg 12/29/20 22:46 Acetaminophen 325 Mg Tablet PO Q6H PRN Pain, Mild (Pain Scale 1-3) Albuterol Sulfate 2 puff 12/29/20 22:51 Albuterol Sulfate 90 Mcg 8 Gm Inhaler INHALE Q6H PRN Wheezing Apixaban 5 mg 12/30/20 09:00 12/30/20 09:31 Apixaban 5 Mg Tablet PO 5 mg BID REBECCA Administration Ascorbic Acid 1,000 mg 12/30/20 09:00 12/30/20 09:30 Ascorbic Acid 500 Mg Tablet PO 1,000 mg DAILY REBECCA Administration Aspirin 81 mg 12/30/20 09:00 12/30/20 09:30 Aspirin Enteric Coated 81 Mg Tablet. PO 81 mg DAILY REBECCA Administration Baclofen 10 mg 12/30/20 09:00 12/30/20 09:31 Baclofen 10 Mg Tablet PO 10 mg BID REBECCA Administration Bisoprolol Fumarate 2.5 mg 12/30/20 09:00 12/30/20 12:23 Bisoprolol Fumarate 5 Mg Tablet PO Not Given Q48H [facility] Gabapentin 300 mg 12/30/20 09:00 12/30/20 09:30 Gabapentin 300 Mg Capsule PO 300 mg TID REBECCA Administration Ceftriaxone Sodium 1 gm/ 50 mls @ 100 mls/hr 12/30/20 15:00 Sodium Chloride IV Q24H [facility] Insulin Glargine 20 unit 12/30/20 21:00 Insulin Glargine,Hum.Rec.Anlog 100 Unit/Ml 10 Ml Vial SUBCUT BEDTIME [facility] Insulin Human Lispro 0 unit 12/30/20 07:30 12/30/20 12:48 Insulin Lispro 100 Unit/Ml 3 Ml Vial SUBCUT 2 unit QIDACHS [facility] Administration Protocol Midodrine 10 mg 12/30/20 09:00 12/30/20 09:30 Midodrine Hcl 5 Mg Tablet PO 10 mg TID REBECCA Administration Nicotine 14 mg 12/30/20 09:00 12/30/20 09:30 Nicotine 14 Mg Patch.Td24 TRANSDERMA 14 mg DAILY [facility] Administration Pharmacy Consult 1 each 12/29/20 19:48 Consult Rx Perform Med Rec MISCELLANE ONCE PRN Consult order Prednisone 20 mg 12/30/20 09:00 12/30/20 09:30 Prednisone 20 Mg Tablet PO 20 mg DAILY REBECCA Administration Sodium Chloride 3 ml 12/30/20 00:00 12/30/20 10:38 0.9 % Sodium Chloride Flush 3 Ml Syringe IVFLUSH 3 ml QSHIFT [facility] Administration Allergies Allergies Allergy/AdvReac Type Severity Reaction Status Date / Time cat dander Allergy Unknown Verified 08/19/20 11:09 house dust AdvReac Unknown Verified 08/19/20 11:09 Assessment & Plan Assessment & Plan (1) Opioid use disorder: Status: Acute Code(s): F11.99 - Opioid use, unspecified with unspecified opioid-induced disorder Recommendations: * continue methadone at current dose (awaiting verification from OTP) * if dose verification can not be obtained today for any reason and patient beg ins to report withdrawal sx, please administer 15mg methadone q4 X2 doses (total of 30mg) * 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 Sister No problems noted. Social History Social History Alcohol intake: current Alcohol intake frequency: does not drink Patient Tobacco Use Status: Current everyday Tobacco user Use of substances other than those prescribed or required for medical reasons: No Substance Use Type: Former Substance User Advance Directives: No Advance Directives Information Provided: No service: No Current occupational status: unemployed
--- NOTE | 2020-12-30 13:34 | MHC.RECOVSUP ---
? Reason for consult:Continuity of care o Current location: [facility] o Identified substance use concern: Cocaine - Support ? Intervention: o MAT started or to be started o Community resources provided o Harm reduction discussion ? Plan: o Patient to follow up with [facility] after discharge ? Additional information:Patient on methadone, relapse on cocaine, pt. given community resources and explained [facility]. 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
[2020-12-30] MEDS: cefTRIAXone sodium 1 GM in 0.9 % Sodium Chloride 50 ML IV (14:44)
--- NOTE | 2020-12-30 16:04 | W.PM.IDCN ---
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 [place] [facility] [place] with 09/22 emergent subxiphoid precordial window and mini left thoracotomy and then pericarditis with large volume effusion He had LA thrombus and debridement annular abscess and discharged 11/04 Review of Systems Genitourinary: Genitourinary: Reports urinary frequency PMFSH Past Medical History Medical History (Updated 12/30/20 @ 16:10 by Audrey Kyle MD) Advanced hepatic cirrhosis Anxiety Bacteremia Depression Diabetes HTN (hypertension) Opioid use disorder Family History Family History Father Liver problem Diabetes mellitus Kidney problem Heart failure CVD (cardiovascular disease) HTN (hypertension) Paternal Uncle Liver problem HTN (hypertension) Diabetes mellitus Cancer Maternal Aunt Kidney failure HTN (hypertension) Diabetes mellitus Mother No problems noted. Sister No problems noted. Family history: reviewed and not pertinent Social History Social History Household Members: Significant Other Alcohol intake: current Alcohol intake frequency: does not drink Patient Tobacco Use Status: Current everyday Tobacco user Use of substances other than those prescribed or required for medical reasons: No Substance Use Type: Former Substance User Advance Directives: No Advance Directives Information Provided: No Do you have thoughts of harming others: None Do you have a plan to hurt others: No Plan Recently lost weight without trying: No Nutrition Risks: No Nutritional Risk service: No Current occupational status: unemployed Meds Allergies Allergy/AdvReac Type Severity Reaction Status Date / Time cat dander Allergy Unknown Verified 08/19/20 11:09 house dust AdvReac Unknown Verified 08/19/20 11:09 Active Medications: Current Medications Generic Name Dose Route Start Last Admin Trade Name Freq PRN Reason Stop Dose Admin Acetaminophen 650 mg 12/29/20 22:46 Acetaminophen 325 Mg Tablet PO Q6H PRN Pain, Mild (Pain Scale 1-3) Albuterol Sulfate 2 puff 12/29/20 22:51 Albuterol Sulfate 90 Mcg 8 Gm Inhaler INHALE Q6H PRN Wheezing Apixaban 5 mg 12/30/20 09:00 12/30/20 09:31 Apixaban 5 Mg Tablet PO 5 mg BID REBECCA Administration Ascorbic Acid 1,000 mg 12/30/20 09:00 12/30/20 09:30 Ascorbic Acid 500 Mg Tablet PO 1,000 mg DAILY REBECCA Administration Aspirin 81 mg 12/30/20 09:00 12/30/20 09:30 Aspirin Enteric Coated 81 Mg Tablet. PO 81 mg DAILY REBECCA Administration Baclofen 10 mg 12/30/20 09:00 12/30/20 09:31 Baclofen 10 Mg Tablet PO 10 mg BID REBECCA Administration Bisoprolol Fumarate 2.5 mg 12/30/20 09:00 12/30/20 12:23 Bisoprolol Fumarate 5 Mg Tablet PO Not Given Q48H REBECCA Gabapentin 300 mg 12/30/20 09:00 12/30/20 14:44 Gabapentin 300 Mg Capsule PO 300 mg TID [facility] Administration Ceftriaxone Sodium 1 gm/ 50 mls @ 100 mls/hr 12/30/20 15:00 12/30/20 15:27 Sodium Chloride IV Infused Q24H [facility] Infusion Insulin Glargine 20 unit 12/30/20 21:00 Insulin Glargine,Hum.Rec.Anlog 100 Unit/Ml 10 Ml Vial SUBCUT BEDTIME [facility] Insulin Human Lispro 0 unit 12/30/20 07:30 12/30/20 12:48 Insulin Lispro 100 Unit/Ml 3 Ml Vial SUBCUT 2 unit QIDACHS [facility] Administration Protocol Midodrine 10 mg 12/30/20 09:00 12/30/20 14:44 Midodrine Hcl 5 Mg Tablet PO 10 mg TID [facility] Administration Nicotine 14 mg 12/30/20 09:00 12/30/20 09:30 Nicotine 14 Mg Patch.Td24 TRANSDERMA 14 mg DAILY [facility] Administration Pharmacy Consult 1 each 12/29/20 19:48 Consult Rx Perform Med Rec MISCELLANE ONCE PRN Consult order Prednisone 20 mg 12/30/20 09:00 12/30/20 09:30 Prednisone 20 Mg Tablet PO 20 mg DAILY REBECCA Administration Sodium Chloride 3 ml 12/30/20 00:00 12/30/20 14:44 0.9 % Sodium Chloride Flush 3 Ml Syringe IVFLUSH 3 ml QSHIFT [facility] Administration Home Medications Medication Instructions Recorded Confirmed Last Taken Type albuterol sulfate 90 mcg/actuation 2 puff INHALATION Q6H PRN 04/06/20 12/29/20 2 Months Ago History aerosol inhaler ~07/16/20 aspirin 81 mg tablet,delayed 81 mg PO DAILY 04/06/20 12/29/20 12/28/20 History release apixaban [Eliquis] 1 tab PO BID 12/29/20 12/29/20 12/28/20 History ascorbic acid (vitamin C) [Vitamin 1,000 mg PO DAILY 12/29/20 12/29/20 12/28/20 History C] baclofen 1 tab PO BID 12/29/20 12/29/20 12/27/20 History bisoprolol fumarate 0.5 tab PO Q OTHER DAY 12/29/20 12/29/20 12/28/20 History furosemide 2 tab PO BID 12/29/20 12/29/20 12/28/20 History gabapentin 3 cap PO TID 12/29/20 12/29/20 12/28/20 History insulin glargine [Lantus Solostar 48 unit SUBCUT BEDTIME 12/29/20 12/29/20 12/28/20 History U-100 Insulin] insulin lispro [Humalog KwikPen 12 - 32 unit SUBCUT TID 12/29/20 12/29/20 12/28/20 History Insulin] methadone [Methadone Intensol] 45 mg PO DAILY 12/29/20 12/29/20 12/29/20 History midodrine 2 tab PO TID 12/29/20 12/29/20 12/28/20 History xepeswnx-wopk-QY-calcium-mins 1 tab PO DAILY 12/29/20 12/29/20 12/28/20 History [Thera-Tabs M] nicotine 1 patch TOPICAL DAILY 12/29/20 12/29/20 12/28/20 History prednisone 1 tab PO DAILY 12/29/20 12/29/20 12/28/20 History spironolactone 2.5 tab PO DAILY 12/29/20 12/29/20 12/28/20 History Physical Exam Vital Signs: Vital Signs: Last Vital Signs Temp 96.8 F 12/30/20 15:55 Pulse 78 12/30/20 15:55 Resp 20 12/30/20 15:55 BP 109/68 12/30/20 15:55 Pulse Ox 99 12/30/20 15:55 Body Mass Index 28.3 Const: General: cooperative HENMT: Head: Yes normal to inspection Mouth: Normal oral and palatal mucosa present Resp: Effort & Inspection: normal respiratory effort Cardio: Rate: regular rate Rhythm: regular rhythm GI: Palpation (GI): Soft to palpation and nontender Skin: General skin exam: no rashes or lesions noted Results Labs CBC & Chem 7: 12/30/20 06:41 12/30/20 06:41 Labs: Short CBC 12/30/20 Range/Units 06:41 WBC 10.0 (4.8-10.8) X10*3/uL Hgb 11.1 L (14.0-18.0) g/dl Hct 36.1 L (42-52) % Plt Count 33 L (160-400) X10*3/uL BMP 12/30/20 06:41 Sodium 133 L Potassium 4.9 Chloride 99 Carbon Dioxide 23 BUN 75 H Creatinine 2.20 H Calcium 8.3 L Urine 12/29/20 Range/Units 19:16 Urine Color YELLOW Urine Appearance CLOUDY Urine pH 5.5 (5.0-8.0) Ur Specific [place] 1.010 (1.005-1.025) Urine Protein 2+ H (NEG-TRACE) MG/DL Urine Glucose (UA) NEG (NEG) MG/DL Microbiology Microbiology Results: Microbiology 12/29/20 19:26 Urine clean catch - Urine murillo top Urine Culture - Preliminary Culture too young to evaluate. 12/29/20 14:59 Blood - Venous Blood Culture - Preliminary 12/29/20 14:59 Blood - Venous Blood Culture - Preliminary Assessment and Plan (1) Bacteremia: Status: Acute He has urologic source infection His probable source is renal Organisms are pending Suggest Ceftriaxone appropriate until final identification culture and sensitivities
[2020-12-30 16:42] LABS: Glucose, Whole Blood 369 mg/dL (60-115)
[2020-12-30 18:20] LABS: Creatinine Urine 63.68 mg/dL; Total Protein Urine Random 45 mg/dL (<12)
[2020-12-30 20:45] LABS: Glucose, Whole Blood 258 mg/dL (60-115)
[2020-12-30] MEDS: Insulin Glargine,Hum.rec.anlog 100 UNIT/ML 10 ML VIAL 20 UNIT SUBCUT (21:05)
--- NOTE | 2020-12-30 22:53 | PC.NURSE ---
Ended up leaving paperwork in the ED and threatened to leave AMA if we didn't check for it. Also asked if he could take a shower. I asked overnight hospitalist who suggested the morning but pt. stated that hell be going against doctors orders and still showering anyway. Hospitalist was notified.
[2020-12-31] VITALS (11 sets, daily range): BP systolic 101–136; BP diastolic 59–88; PULSE 59–74; RESP 16–20; TEMP 35–36.7; O2SAT 95–100
[2020-12-31 07:21] LABS: Glucose, Whole Blood 181 mg/dL (60-115)
[2020-12-31 07:42] LABS: Anion Gap 17 (12-20); Blood Urea Nitrogen 85 mg/dL (9-16); Calcium 8.4 mg/dL (8.4-10.2); Carbon Dioxide 25 mmol/L (22-29); Chloride 98 mmol/L (96-108); Creatinine Clr Calc Pharmacy 54.9; Estimated Glomerular Filt Rate 36; Glucose Random 205 mg/dL (60-115); Potassium 4.6 mmol/L (3.3-5.1); Sodium 135 mmol/L (135-145)
[2020-12-31] MEDS: Midodrine HCl 5 MG TABLET 10 MG PO ×3 (08:05→20:07)
[2020-12-31] MEDS: Insulin Lispro 100 UNIT/ML 3 ML VIAL SUBCUT ×4 (08:05→20:09)
[2020-12-31] MEDS: Ascorbic Acid 500 MG TABLET 1000 MG PO (08:05)
[2020-12-31] MEDS: Aspirin Enteric Coated 81 MG TABLET.DR PO (08:05)
[2020-12-31] MEDS: 0.9 % Sodium Chloride Flush 3 ML SYRINGE IVFLUSH ×3 (08:06→23:29)
[2020-12-31] MEDS: Apixaban 5 MG TABLET PO ×2 (08:06→20:08)
[2020-12-31] MEDS: predniSONE 20 MG TABLET PO (08:06)
[2020-12-31] MEDS: Baclofen 10 MG TABLET PO ×2 (08:06→20:06)
[2020-12-31] MEDS: Gabapentin 300 MG CAPSULE PO ×3 (08:06→20:08)
[2020-12-31] MEDS: Nicotine 14 MG PATCH.TD24 TRANSDERMA (09:45)
[2020-12-31 11:09] LABS: Glucose, Whole Blood 289 mg/dL (60-115)
--- NOTE | 2020-12-31 11:31 | PC.NURSE ---
[employer] over heard pt and visitor talking about drug deals in [place]. Pt's door left open, nursing supervisor communications and signals made aware, security made aware. Will continue to monitor for alterations in mental status or any other suspicions
--- NOTE | 2020-12-31 12:16 | P.PNNP_ITS ---
Subjective Subjective Date of Service: 12/31/20 (Pt geels better ) Physical Exam Vital Signs: Vital Signs: Last Vital Signs Temp 95.6 F L 12/31/20 11:12 Pulse 74 12/31/20 11:12 Resp 20 12/31/20 11:12 BP 123/79 12/31/20 11:12 Pulse Ox 100 12/31/20 11:12 Body Mass Index 28.3 Const: General: cooperative Orientation/consciousness: patient oriented x3 Limitations: no limitations HENMT: Head: Yes normal to inspection Ears: hearing grossly normal bilaterally General nose exam: Normal external nose present Face and sinus: Yes normal facial exam Mouth: Normal oral and palatal mucosa present Throat: Yes posterior oropharynx normal Eyes: General: appearance normal, both eyes and all related structures Pupils: Equal, round and reactive pupils present Neck: Neck: Yes normal visual inspection, Yes full ROM and Yes no lymphadenopathy Chest: Chest palpation & inspection: normal inspection of the chest Resp: Effort & Inspection: normal respiratory effort Auscultation: clear to auscultation bilaterally Cardio: Rate: regular rate and tachycardic Rhythm: regular rhythm Peripheral pulses: Peripheral pulses 2+ throughout GI: Inspection: Yes normal to inspection Palpation (GI): Soft to palpation and nontender Auscultation: normal bowel sounds Back/Spine/Pelvis: Thoracic/Lumbar Spine: thoracic and lumbar spine normal to inspection Skin: General skin exam: no rashes or lesions noted Neuro: General: patient oriented x3, no focal motor deficits and normal sensation to monofilament Cranial nerves: Yes CN's II-XII intact bilaterally, Yes Equal, round and reactive pupils present, Yes Bilaterally intact EOM presen t, Yes Nystagmus not present, Yes Normal facial strength present and Yes Midline tongue present Cognition (Neuro): normal cognition Speech: No Abnormal speech present Gait exam (Neuro): Normal gait present Sensory Exam: Normal double simultaneous stimulation for sensation Extrem: General: Yes normal to inspection, Yes no pedal edema and Yes no calf tenderness Objective Data Labs CBC & Chem 7: 12/30/20 06:41 12/31/20 05:53 Labs: Laboratory Results - last 24 hr 12/30/20 12/30/20 12/30/20 12:17 16:38 17:53 Sodium Potassium Chloride Carbon Dioxide Anion Gap BUN Creatinine Estim Creat Clear Calc Estimated GFR POC Glucose 192 H 369 H* Random Glucose Calcium U Random Total Protein 45 H Ur Random Sodium 23.0 Urine Creatinine 63.68 12/30/20 12/31/20 12/31/20 20:23 05:53 07:08 Sodium 135 Potassium 4.6 Chloride 98 Carbon Dioxide 25 Anion Gap 17 BUN 85 H* Creatinine 2.03 H Estim Creat Clear Calc 54.9 Estimated GFR 36 POC Glucose 258 H 181 H Random Glucose 205 H Calcium 8.4 U Random Total Protein Ur Random Sodium Urine Creatinine 12/31/20 11:04 Sodium Potassium Chloride Carbon Dioxide Anion Gap BUN Creatinine Estim Creat Clear Calc Estimated GFR POC Glucose 289 H Random Glucose Calcium U Random Total Protein Ur Random Sodium Urine Creatinine Microbiology Microbiology Results: Microbiology 12/29/20 19:26 Urine clean catch - Urine murillo top Urine Culture - Preliminary Gram negative antoinette 12/29/20 14:59 Blood - Venous Blood Culture - Preliminary Gram negative antoinette 12/29/20 14:59 Blood - Venous Blood Culture - Preliminary Gram negative antoinette Assessment & Plan Assessment and plan (1) Bacteremia: Status: Acute Assessment and Plan: VINH - Resolving UT_ better on antibiotics Will get info from [facility] Avoid nephrotoxins Diuretics on hold No hydro on USG Time Spent With Patient Time: Total time spent is greater than 50% in coordination of care (as documented) at patient's floor/unit and/or counseling patient: Procedures Date of Service Date of Service: 12/31/20 Progress Note: Quality Stroke Does the patient have a stroke diagnosis?: No
--- NOTE | 2020-12-31 15:17 | P.PNIM_ITS ---
Subjective Subjective Date of Service: 12/31/20 Interval History: Seen and examined this morning. follow up for UTI/bacteremia Patient feeling well this morning. Denies fever, chills Review of Systems Review of Systems: Yes all other systems are reviewed and are negative Constitutional Constitutional: Denies chills and Denies fever(s) Cardiovascular Cardiovascular: Denies chest pain Respiratory Respiratory: Denies cough Gastrointestinal Gastrointestinal: Denies abdominal pain Physical Exam Vital Signs: Vital Signs: Last Vital Signs Temp 95.6 F L 12/31/20 11:12 Pulse 74 12/31/20 11:12 Resp 20 12/31/20 11:12 BP 123/79 12/31/20 11:12 Pulse Ox 100 12/31/20 11:12 Body Mass Index 28.3 Const: Nutritional Appearance: well nourished Orientation/consciousness: patient oriented x3 HENMT: Head: Yes normocephalic and Yes atraumatic Eyes: Sclerae: sclerae normal Chest: Chest palpation & inspection: normal inspection of the chest Resp: Effort & Inspection: normal respiratory effort and no respiratory distress Cardio: Rate: regular rate Rhythm: regular rhythm GI: Palpation (GI): Soft to palpation and nontender Neuro: General: patient oriented x3 Cranial nerves: Yes CN's II-XII intact bilaterally and Yes Bilaterally intact EOM present Objective Data Current Medications Generic Name Dose Route Start Last Admin Trade Name Freq PRN Reason Stop Dose Admin Acetaminophen 650 mg 12/29/20 22:46 Acetaminophen 325 Mg Tablet PO Q6H PRN Pain, Mild (Pain Scale 1-3) Albuterol Sulfate 2 puff 12/29/20 22:51 Albuterol Sulfate 90 Mcg 8 Gm Inhaler INHALE Q6H PRN Wheezing Apixaban 5 mg 12/30/20 09:00 12/31/20 08:06 Apixaban 5 Mg Tablet PO 5 mg BID REBECCA Administration Ascorbic Acid 1,000 mg 12/30/20 09:00 12/31/20 08:05 Ascorbic Acid 500 Mg Tablet PO 1,000 mg DAILY REBECCA Administration Aspirin 81 mg 12/30/20 09:00 12/31/20 08:05 Aspirin Enteric Coated 81 Mg Tablet. PO 81 mg DAILY REBECCA Administration Baclofen 10 mg 12/30/20 09:00 12/31/20 08:06 Baclofen 10 Mg Tablet PO 10 mg BID REBECCA Administration Bisoprolol Fumarate 2.5 mg 12/30/20 09:00 12/30/20 12:23 Bisoprolol Fumarate 5 Mg Tablet PO Not Given Q48H [facility] Gabapentin 300 mg 12/30/20 09:00 12/31/20 08:06 Gabapentin 300 Mg Capsule PO 300 mg TID [facility] Administration Ceftriaxone Sodium 1 gm/ 50 mls @ 100 mls/hr 12/30/20 15:00 12/30/20 15:27 Sodium Chloride IV Infused Q24H REBECCA Infusion Insulin Glargine 20 unit 12/30/20 21:00 12/30/20 21:05 Insulin Glargine,Hum.Rec.Anlog 100 Unit/Ml 10 Ml Vial SUBCUT 20 unit BEDTIME [facility] Administration Insulin Human Lispro 0 unit 12/30/20 07:30 12/31/20 12:12 Insulin Lispro 100 Unit/Ml 3 Ml Vial SUBCUT 6 unit QIDACHS [facility] Administration Protocol Methadone HCl 40 mg 12/30/20 17:30 12/31/20 08:11 Methadone Hcl 1 Mg/0.1 Ml Oral.Conc PO 40 mg DAILY [facility] Administration Midodrine 10 mg 12/30/20 09:00 12/31/20 08:05 Midodrine Hcl 5 Mg Tablet PO 10 mg TID [facility] Administration Nicotine 14 mg 12/30/20 09:00 12/31/20 09:45 Nicotine 14 Mg Patch.Td24 TRANSDERMA 14 mg DAILY [facility] Administration Pharmacy Consult 1 each 12/29/20 19:48 Consult Rx Perform Med Rec MISCELLANE ONCE PRN Consult order Prednisone 10 mg 01/01/21 09:00 Prednisone 10 Mg Tablet PO DAILY [facility] Sodium Chloride 3 ml 12/30/20 00:00 12/31/20 08:06 0.9 % Sodium Chloride Flush 3 Ml Syringe IVFLUSH 3 ml QSHIFT [facility] Administration Labs CBC & Chem 7: 12/30/20 06:41 12/31/20 05:53 Labs: Laboratory Results - last 24 hr 12/30/20 12/30/20 12/30/20 16:38 17:53 20:23 Sodium Potassium Chloride Carbon Dioxide Anion Gap BUN Creatinine Estim Creat Clear Calc Estimated GFR POC Glucose 369 H* 258 H Random Glucose Calcium U Random Total Protein 45 H Ur Random Sodium 23.0 Urine Creatinine 63.68 12/31/20 12/31/20 12/31/20 05:53 07:08 11:04 Sodium 135 Potassium 4.6 Chloride 98 Carbon Dioxide 25 Anion Gap 17 BUN 85 H* Creatinine 2.03 H Estim Creat Clear Calc 54.9 Estimated GFR 36 POC Glucose 181 H 289 H Random Glucose 205 H Calcium 8.4 U Random Total Protein Ur Random Sodium Urine Creatinine Microbiology Microbiology Results: Microbiology 12/29/20 19:26 Urine Culture - Preliminary Urine clean catch - Urine murillo top Gram negative antoinette 12/29/20 14:59 Blood Culture - Preliminary Blood - Venous Gram negative antoinette 12/29/20 14:59 Blood Culture - Preliminary Blood - Venous Gram negative antoinette Quality Stroke Does the patient have a stroke diagnosis?: No VTE Prior VTE?: No VTE Risk Level:: Medical - moderate - high VTE Device Contraindication: N/A - Device Ordered VTE Drug Contraindication: N/A - Med Ordered Assessment and Plan (1) Bacteremia: Status: Acute (2) UTI (urinary tract infection): Status: Acute Assessment and Plan: This is a 45-year-old male with a past medical history of hypertension, hyperlipidemia, diabetes, liver cirrhosis, orthostatic hypotension on midodrine, opiate dependence on methadone, history of endocarditis/mitral valve repairs/prosthetic valve on Eliquis presented to the hospital with a chief complaint of generalized weakness and urinary frequency admitted for AKA and UTI now with gram negative antoinette bacteremia. Bacteremia 2/2 blood cultures from 12/29 growing Gram-negative rods Likely related to underlying UTI -follow final sensitivities -continue IV ceftriaxone VINH: Creatinine trending down slightly. Will check [facility] documentation for creatinine on discharge. No evidence of obstruction on renal ultrasound -Nephro following -follow BMP UTI: Urine culture growing Gram-negative rods -Continue ceftriaxone started 12/30 - Follow up cultures - ID Following History of orthostatic hypotension: -Patient's blood pressure currently stable. 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 MVR anterior porcine leaflet with valve preservation technique at [facility] [place] [place] on 09/15 with 09/22 emergent subxiphoid precordial window and mini left thoracotomy and then pericarditis with large volume effusion LA thrombus and debridement annular abscess -continue Eliquis. -continue prednisone. according to patient he was supposed to decrease his prednisone from 20 mg daily to 10 mg daily on December 13 for 2 weeks and then discontinue steroids. He did not decrease his prednisone and has continued to take 20 mg daily. Will decrease to 10 mg daily starting tomorrow. He should call [facility] provider to determine further management following discharge. CT chest showed focal fluid collection in the retrosternal soft tissue-likely postop. Pulmonary nodule: Recommended outpatient PCP follow-up for surveillance CT scans. History of opiate abuse -continue methadone History of liver cirrhosis/splenomegaly: Continue to monitor. History of diabetes: -continue lantus Continue insulin sliding scale. Tobacco dependence -NRT DVT prophylaxis: Patient on Eliquis Code status: Full code Attending-Dr. Lorenzana
--- NOTE | 2020-12-31 15:29 | CONS_ITS ---
DATE OF SERVICE: 12/30/2020 The patient was seen on 12/30/2020. REASON FOR CONSULTATION: Consult requested by the medical team to evaluate and help in management of the patient's renal insufficiency/acute kidney injury. HISTORY OF PRESENT ILLNESS: The patient is a 45year-old male with past medical history of hypertension, hyperlipidemia, history of liver cirrhosis, opiate dependence, on methadone with recent admission to [facility] for endocarditis and subsequent mitral valve repair, status post prosthetic mitral valve on Eliquis, recently finished antibiotic course, who presented to the hospital with complaints of generalized weakness. He recently finished an antibiotic course. He is currently on Lasix and Aldactone at home. He presented to the hospital with chief complaint of generalized weakness. Over the last few days, he has had difficulty ambulating and dysuria. He had a fall, but there was no loss of consciousness. There was no chest pain or palpitation. He had increased urinary frequency and urgency and complains of subjective chills. Full information regarding his course in [facility] is not available to me at this juncture. In the ER, the patient was found to have low-grade temperature and urinalysis consistent with UTI and was started on ceftriaxone. He had a bedside echocardiogram, which did not show any pericardial effusion. He was noted to have acute kidney injury with creatinine around 2.5. His baseline creatinine in the past has been close to normal. He denies using any NSAIDs. He denies significant diarrhea. PAST MEDICAL HISTORY: History of advanced hepatic cirrhosis, anxiety, depression, type 2 diabetes mellitus, hypertension, opioid use disorder. FAMILY HISTORY: Include history of heart failure/coronary artery disease, hypertension, diabetes, liver problems. PERSONAL AND SOCIAL HISTORY: He does not drink alcohol at the present time. He used to drink significant alcohol. Currently, every day smoker. Does not use drugs. ALLERGIES: THERE ARE NO KNOWN DRUG ALLERGIES. MEDICATIONS: As an outpatient includes Tylenol, albuterol, aspirin, apixaban, ascorbic acid, baclofen, bisoprolol, furosemide twice a day, gabapentin, insulin, nicotine, prednisone, and spironolactone. PHYSICAL EXAMINATION: GENERAL: The patient is resting in the bed. Awake, alert, able to ambulate inside the room. VITAL SIGNS: Blood pressure was 102/61, pulse 100, afebrile. HEENT: Shows pupils equal bilaterally and reactive to light. No jugular venous distention noted. NECK: Supple. No thyromegaly is noted. Mucosa moist. There is no scleral icterus or conjunctival congestion. CARDIOVASCULAR SYSTEM: S1, S2 without rub or murmur. RESPIRATORY SYSTEM: Air entry decreased in the bases. ABDOMEN: Distended with fluid. Bowel sounds are noted. EXTREMITIES: Trace edema. There is no peripheral cyanosis or clubbing. NEURO: Essentially nonfocal. LABORATORY DATA: Labs done recently. WBC 10, hemoglobin 11.1, hematocrit 36, platelets 33. Sodium 133, potassium 4.9, chloride 99, CO2 of 23, BUN 75, creatinine 2.20. Estimated GFR 270. Lactic acid is 1.7. Urinalysis shows specific gravity of 1.010, protein 2+, glucose negative, ketone negative, blood 3+, rbc's 10 to 14, wbc's were negative. IMPRESSION: 1. A 45-year-old male with acute kidney injury. Acute kidney injury in this patient likely secondary to renal hypoperfusion and over diuresis. He was on 2 diuretics on admission. Obstruction needs to be ruled out on this patient as he has had difficulty passing urine and dysuria. I cannot comment the possibility of acute GN/interstitial disease at this juncture. We need to get records from [facility] to see if he had any nephrotoxic agents including contrast infusion. His baseline creatinine is close to normal. 2. Urinary tract infection. 3. Liver cirrhosis. 4. Type 2 diabetes mellitus. RECOMMENDATIONS: At this time, I have taken the liberty to order workup including spot urine for electrolytes, protein, creatinine. I agree with holding off on diuretics for now and watching his renal function. I also agree with doing a renal ultrasound on this patient. Antibiotic including ceftriaxone as per the medical team. For now, we can continue the present dose of gabapentin, but if his creatinine worsens, we need to decrease the dose. We will continue to follow the patient closely. Thank you for allowing me to participate in the medical management of this patient. MD DEAN Johnston/IRAM / [id number]
[2020-12-31] MEDS: cefTRIAXone sodium 1 GM in 0.9 % Sodium Chloride 50 ML IV (15:47)
[2020-12-31 16:37] LABS: Glucose, Whole Blood 307 mg/dL (60-115)
[2020-12-31 19:54] LABS: Glucose, Whole Blood 473 mg/dL (60-115)
[2020-12-31] MEDS: Insulin Glargine,Hum.rec.anlog 100 UNIT/ML 10 ML VIAL 20 UNIT SUBCUT (20:08)
[2021-01-01 03:19] VITALS: BP 135/85; PULSE 64; RESP 17; TEMP 36.4; O2SAT 97
[2021-01-01 07:41] LABS: Glucose, Whole Blood 254 mg/dL (60-115)
[2021-01-01] MEDS: Nicotine 14 MG PATCH.TD24 TRANSDERMA (07:55)
[2021-01-01] MEDS: Gabapentin 300 MG CAPSULE PO ×2 (07:55→14:49)
[2021-01-01] MEDS: Ascorbic Acid 500 MG TABLET 1000 MG PO (07:56)
[2021-01-01] MEDS: Bisoprolol Fumarate 5 MG TABLET 2.5 MG PO (07:57)
[2021-01-01] MEDS: Apixaban 5 MG TABLET PO (07:57)
[2021-01-01 07:58] VITALS: PULSE 81
[2021-01-01] MEDS: Aspirin Enteric Coated 81 MG TABLET.DR PO (07:58)
[2021-01-01] MEDS: Midodrine HCl 5 MG TABLET 10 MG PO ×2 (07:58→14:49)
[2021-01-01] MEDS: Baclofen 10 MG TABLET PO (07:58)
[2021-01-01] MEDS: Insulin Lispro 100 UNIT/ML 3 ML VIAL SUBCUT ×2 (07:59→11:48)
[2021-01-01 08:00] VITALS: BP 104/74; PULSE 72; RESP 19; TEMP 35.5; O2SAT 96
[2021-01-01] MEDS: 0.9 % Sodium Chloride Flush 3 ML SYRINGE IVFLUSH (08:00)
[2021-01-01 08:54] LABS: Mean Corpuscular HGB Conc 30.8 g/dl (31.0-36.0); Mean Corpuscular Hemoglobin 23.5 pg (27.0-33.0); Mean Corpuscular Volume 76.5 fL (80-98); Red Cell Distribution Width 19.3 % (11.0-16.0); White Blood Count 8.6 X10*3/uL (4.8-10.8)
[2021-01-01 08:56] LABS: INTERNATIONAL NORM RATIO 1.4 (0.9-1.1); Prothrombin Time 16.1 SEC (10.8-13.0)
[2021-01-01 09:14] LABS: Platelet Count 66 X10*3/uL (160-400)
[2021-01-01 09:18] LABS: Anion Gap 18 (12-20); Blood Urea Nitrogen 94 mg/dL (9-16); Calcium 8.8 mg/dL (8.4-10.2); Carbon Dioxide 22 mmol/L (22-29); Chloride 101 mmol/L (96-108); Creatinine Clr Calc Pharmacy 60.5; Estimated Glomerular Filt Rate 40; Glucose Random 291 mg/dL (60-115); Sodium 136 mmol/L (135-145)
--- NOTE | 2021-01-01 09:18 | MHC.CM.PN ---
at this time dc plan remains the same, to return home c vna svcs he was active c prior to admission. girlfriend to transport. cm to cont. to follow.
[2021-01-01] MEDS: predniSONE 10 MG TABLET PO (10:03)
[2021-01-01] MEDS: levoFLOXacin/D5W 750 MG/150 ML PIGGYBACK 100 MG IV (10:04)
[2021-01-01 10:45] VITALS: BP 121/83; PULSE 65; RESP 20; TEMP 35.2; O2SAT 100
[2021-01-01 11:27] LABS: Glucose, Whole Blood 221 mg/dL (60-115)
--- NOTE | 2021-01-01 13:20 | PM.DS ---
DS: Providers Provider Date of Service: 01/01/21 <GISELL Esteves - Last Filed: 01/01/21 13:27> Date of admission: 12/29/20 22:47 <GISELL Esteves - Last Filed: 01/01/21 13:27> Primary care physician: Akilah Mark MD <GISELL Esteves - Last Filed: 01/01/21 13:27> Consults: 12/29/20 22:46 Consult to Nephrology Routine Consulting Provider: Brenden Ty Reason for consultation: Vinh 12/29/20 23:05 Consult to Infectious Diseases Routine Consulting Provider: Audrey Kyle Reason for consultation: UTI; recent hx Endocarditis 12/29/20 23:06 Addiction Medicine Routine Consulting Provider: Akilah Suero Reason for consultation: pt on methadone <GISELL Esteves - Last Filed: 01/01/21 13:27> DS: Diagnosis Discharge Diagnosis (1) Bacteremia: Status: Acute <GISELL Esteves - Last Filed: 01/01/21 13:27> (2) UTI (urinary tract infection): Status: Acute <GISELL Esteves - Last Filed: 01/01/21 13:27> Problem details: He has no complaints He has UTI <GISELL Esteves - Last Filed: 01/01/21 13:27> (3) VINH (acute kidney injury): Status: Acute <GISELL Esteves - Last Filed: 01/01/21 13:27> DS: Medications Discharge Medications Home Medications: Home Medications Medication Instructions Recorded Confirmed albuterol sulfate 90 mcg/actuation 2 puff INHALATION Q6H PRN 04/06/20 12/29/20 aerosol inhaler aspirin 81 mg tablet,delayed 81 mg PO DAILY 04/06/20 12/29/20 release apixaban [Eliquis] 1 tab PO BID 12/29/20 12/29/20 ascorbic acid (vitamin C) [Vitamin 1,000 mg PO DAILY 12/29/20 12/29/20 C] baclofen 1 tab PO BID 12/29/20 12/29/20 bisoprolol fumarate 0.5 tab PO Q OTHER DAY 12/29/20 12/29/20 furosemide 2 tab PO BID 12/29/20 12/29/20 gabapentin 3 cap PO TID 12/29/20 12/29/20 insulin glargine [Lantus Solostar 48 unit SUBCUT BEDTIME 12/29/20 12/29/20 U-100 Insulin] insulin lispro [Humalog KwikPen 12 - 32 unit SUBCUT TID 12/29/20 12/29/20 Insulin] methadone [Methadone Intensol] 45 mg PO DAILY 12/29/20 12/29/20 midodrine 2 tab PO TID 12/29/20 12/29/20 [id number]-NR-calcium-mins 1 tab PO DAILY 12/29/20 12/29/20 [Thera-Tabs M] nicotine 1 patch TOPICAL DAILY 12/29/20 12/29/20 prednisone 1 tab PO DAILY 12/29/20 12/29/20 spironolactone 2.5 tab PO DAILY 12/29/20 12/29/20 <GISELL Esteves - Last Filed: 01/01/21 13:27> DS: Summary Hospital Course Hospital Course: From H&P on day of admission: Chief Complaint: generalized weakness 45-year-old male with a past medical history of hypertension, hyperlipidemia, history of liver cirrhosis, opiate dependence on methadone, recent admission to the [facility] for endocarditis and subsequent mitral wall repair status post prosthetic mitral valve-on Eliquis; recently finished antibiotic course. Currently on Lasix and Aldactone at home; presented to the hospital today with a chief complaint of generalized weakness. Patient reported that over the past few days he has been having generalized weakness and tiredness; limiting his ambulation. Mentions that couple days ago his legs gave out and had had a fall. Denies any head strike or loss of consciousness. Denies any chest pain or palpitations. Patient reported that he has urinary frequency/urgency. Complains of subjective chills. Patient mentioned that he had a follow-up visit in the CT surgery/Cardiology Clinic after the surgery and was told everything looks okay. And continue taking same medications. Review of all other systems is negative except mentioned above ER course: Per ER team patient noted to have low-grade temperature, urinalysis was abnormal consistent with UTI-given ceftriaxone. ER team also mentioned that they did a bedside echocardiogram did not notice any pericardial effusion. Did a CT chest did not show any evidence of pneumonia Bacteremia, 2/2 blood cultures from 12/29 growing Gram-negative rods final sensitivities growing E coli sensitive to levofloxacin. Likely related to underlying UTI. Was initially treated with IV ceftriaxone but given that urine cultures are growing E coli with Pseudomonas will change to IV levofloxacin on discharge VINH: 2.54, this has come down to 1.84 by holding diuretics. After reviewing notes from the day his creatinine was around 1 on discharge. Increase in creatinine is likely secondary to for high doses of diuretics. There was No evidence of obstruction on renal ultrasound. He was evaluated by Nephrology. He will be discharged home with lower doses of diuretics. He should have BMP repeated in 1 week. Further dosing of diuretic based on renal function. UTI: Urine culture growing Gram-negative rods, final sensitivities growing E coli as well as Pseudomonas. Patient initially treated with IV ceftriaxone, this will be changed to IV levofloxacin on discharge. 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 h/o MSSA bacteremia. MVR anterior porcine leaflet with valve preservation technique at [facility] on 09/15 with 09/22 emergent subxiphoid precordial window and mini left thoracotomy and then pericarditis with large volume effusion. LA thrombus and debridement annular abscess Patient was continued on his home dose of Eliquis. He was continued on prednisone. according to patient he was supposed to decrease his prednisone from 20 mg daily to 10 mg daily on December 13 for 2 weeks and then discontinue steroids. He did not decrease his prednisone and has continued to take 20 mg daily. His dose of prednisone was decreased to 10 mg today. He should call [facility] provider to determine further management following discharge. CT chest showed focal fluid collection in the retrosternal soft tissue-likely postop. Should follow-up with her cardiac surgeon. Pulmonary nodule: Recommended outpatient PCP follow-up for surveillance CT scans. History of opiate abuse. Patient was continued on his home dose of methadone History of liver cirrhosis/splenomegaly/thrombocytopenia: Discharge home on lower dose of diuretics. Monitor her for bleeding with thrombocytopenia on anticoagulation with Eliquis. Patient should follow up with outpatient GI provider. Attending Attestation: Patient seen and examined independently and I was present during anthony portion of E/M service. Agree with GISELL Newman's history, physical, assessment, and plan. Patient with E. Coli bacteremia. Found E. Coli and pseduomonas in the Urine. Will be d/c on 21 days of Levaquin. (Pharmacy called and prescription changed from 14 to 21 days and patient informed). <GISELL Esteves - Last Filed: 01/01/21 13:27> Time Spent with Patient Time attestation: Total time spent providing and/or coordinating discharge services: <GISELL Esteves Last Filed: 01/01/21 13:27> Discharge coordination time: Greater than 30 minutes <GISELL Esteves Last Filed: 01/01/21 13:27> Quality: Stroke Does the patient have a stroke diagnosis?: No <GISELL Esteves Last Filed: 01/01/21 13:27> Physical Exam Vital Signs: Vital Signs: Last Vital Signs Temp 95.4 F L 01/01/21 10:45 Pulse 65 01/01/21 10:45 Resp 20 01/01/21 10:45 BP 121/83 01/01/21 10:45 Pulse Ox 100 01/01/21 10:45 Body Mass Index 28.3 <GISELL Esteves Last Filed: 01/01/21 13:27> Const: Nutritional Appearance: well nourished <GISELL Esteves Last Filed: 01/01/21 13:27> Orientation/consciousness: patient oriented x3 <GISELL Esteves Last Filed: 01/01/21 13:27> HENMT: Head: Yes normocephalic and Yes atraumatic <GISELL Esteves - Last Filed: 01/01/21 13:27> Eyes: Sclerae: sclerae normal <GISELL Esteves Last Filed: 01/01/21 13:27> Chest: Chest palpation & inspection: normal inspection of the chest <GISELL Esteves Last Filed: 01/01/21 13:27> Resp: Effort & Inspection: normal respiratory effort and no respiratory distress <GISELL Esteves Last Filed: 01/01/21 13:27> Auscultation: clear to auscultation bilaterally <GISELL Esteves - Last Filed: 01/01/21 13:27> Cardio: Rate: regular rate <GISELL Esteves - Last Filed: 01/01/21 13:27> Rhythm: regular rhythm <GISELL Esteves - Last Filed: 01/01/21 13:27> GI: Palpation (GI): Soft to palpation and nontender <GISELL Esteves - Last Filed: 01/01/21 13:27> Neuro: General: patient oriented x3 <GISELL Esteves - Last Filed: 01/01/21 13:27> Cranial nerves: Yes CN's II-XII intact bilaterally and Yes Bilaterally intact EOM present <GISELL Esteves - Last Filed: 01/01/21 13:27> DS: Data Data Completed and Pending Labs on day of discharge: Laboratory Results - last 24 hr 12/31/20 12/31/20 01/01/21 16:34 19:42 07:23 WBC RBC Hgb Hct MCV MCH MCHC RDW Plt Count MPV Absolute Nucleated RBC Nucleated RBC % (auto) PT INR Sodium Potassium Chloride Carbon Dioxide Anion Gap BUN Creatinine Estim Creat Clear Calc Estimated GFR POC Glucose 307 H 473 H* 254 H Random Glucose Calcium 01/01/21 01/01/21 01/01/21 08:39 08:39 08:39 WBC 8.6 RBC 5.10 Hgb 12.0 L Hct 39.0 L MCV 76.5 L MCH 23.5 L MCHC 30.8 L RDW 19.3 H Plt Count 66 L D MPV Not Reportable Absolute Nucleated RBC 0.000 Nucleated RBC % (auto) 0.0 PT 16.1 H INR 1.4 H Sodium 136 Potassium 5.0 Chloride 101 Carbon Dioxide 22 Anion Gap 18 BUN 94 H* Creatinine 1.84 H Estim Creat Clear Calc 60.5 Estimated GFR 40 POC Glucose Random Glucose 291 H D Calcium 8.8 01/01/21 11:17 WBC RBC Hgb Hct MCV MCH MCHC RDW Plt Count MPV Absolute Nucleated RBC Nucleated RBC % (auto) PT INR Sodium Potassium Chloride Carbon Dioxide Anion Gap BUN Creatinine Estim Creat Clear Calc Estimated GFR POC Glucose 221 H Random Glucose Calcium <GISELL Esteves Last Filed: 01/01/21 13:27> Discharge Plan Discharge Patient Disposition: Home, Self-Care <GISELL Esteves - Last Filed: 01/01/21 13:27> Discharge Diagnosis: bacteremia, gram negative UTI VINH <GISELL Esteves - Last Filed: 01/01/21 13:27> bacteremia, gram negative UTI VINH <Berlin Lorenzana MD - Last Filed: 01/01/21 14:17> Referrals: [facility] [Other] - 1 Week Akilah Jerry MD [Primary Care Provider] - 1 Week <GISELL Esteves - Last Filed: 01/01/21 13:27> Discharge Medications: New levofloxacin 750 mg tablet 750 mg PO DAILY 14 Days Qty: 14 RF: 0 Continued nicotine 14 mg/24 hr patch 24 hour 1 patch topical DAILY RF: 0 midodrine 5 mg tablet 2 tab PO TID RF: 0 bisoprolol fumarate 5 mg tablet 0.5 tab PO Q OTHER DAY RF: 0 baclofen 10 mg tablet 1 tab PO BID RF: 0 gabapentin 100 mg capsule 3 cap PO TID RF: 0 insulin lispro [Humalog KwikPen Insulin] 100 unit/mL insulin pen 12 - 32 unit subcut TID RF: 0 Lantus Solostar U-100 Insulin 100 unit/mL (3 mL) insulin pen 48 unit subcut BEDTIME RF: 0 Thera-Tabs M 27 mg iron-400 mcg tablet 1 tab PO DAILY RF: 0 Eliquis 5 mg tablet 1 tab PO BID RF: 0 ascorbic acid (vitamin C) [Vitamin C] 500 mg Tablet 1,000 mg PO DAILY RF: 0 methadone [Methadone Intensol] 10 mg/mL Concentrate 45 mg PO DAILY RF: 0 albuterol sulfate 90 mcg/actuation HFA aerosol inhaler 2 puff inhalation Q6H PRN (Reason: Wheezing) RF: 0 aspirin [Adult Low Dose Aspirin] 81 mg tablet,delayed release (DR/EC) 81 mg PO DAILY RF: 0 Changed prednisone 20 mg tablet 10 mg PO DAILY Qty: 0 RF: 0 spironolactone 100 mg tablet 50 mg PO DAILY 30 Days Qty: 15 RF: 0 furosemide 80 mg tablet 80 mg PO BID 30 Days Qty: 60 RF: 0 <GISELL Esteves - Last Filed: 01/01/21 13:27> Discharge Orders: Discharge Order (Routine); Ordered 01/01/21 Ordered By: Natalia Nichole <GISELL Esteves - Last Filed: 01/01/21 13:27> Activity on Discharge: As tolerated <GISELL Esteves - Last Filed: 01/01/21 13:27> As tolerated <Berlin Lorenzana MD - Last Filed: 01/01/21 14:17> Stand Alone Forms: Patient Portal Discharge page <GISELL Esteves - Last Filed: 01/01/21 13:27> Other Ambulatory Orders: Basic Metabolic Panel (Routine) Timeframe: 1 Week Facility: [facility] - Location: Laboratory Ordered By: Natalia Nichole <GISELL Esteves - Last Filed: 01/01/21 13:27> Care Plan Goals: see below <GISELL Esteves - Last Filed: 01/01/21 13:27> Health Concerns: VINH Bacteremia UTI <GISELL Esteves - Last Filed: 01/01/21 13:27> Plan of Treatment: Please continue taking antibiotics until completion Please call [facility] prescriber for prednisone to determine dose of prednisone moving forward Please follow up with PCP Please have your labs repeat in 1 week <GISELL Esteves - Last Filed: 01/01/21 13:27> Assessment: see discharge summary <GISELL Esteves - Last Filed: 01/01/21 13:27>
--- NOTE | 2021-01-01 13:57 | PM.IDPN ---
Subjective Subjective Date of Service: 01/01/21 Interval History: he is sleeping Critical Care Time (minutes): 15 Objective Data Labs CBC & Chem 7: 01/01/21 08:39 01/01/21 08:39 Labs: Laboratory Results - last 24 hr 12/31/20 12/31/20 01/01/21 16:34 19:42 07:23 WBC RBC Hgb Hct MCV MCH MCHC RDW Plt Count MPV Absolute Nucleated RBC Nucleated RBC % (auto) PT INR Sodium Potassium Chloride Carbon Dioxide Anion Gap BUN Creatinine Estim Creat Clear Calc Estimated GFR POC Glucose 307 H 473 H* 254 H Random Glucose Calcium 01/01/21 01/01/21 01/01/21 08:39 08:39 08:39 WBC 8.6 RBC 5.10 Hgb 12.0 L Hct 39.0 L MCV 76.5 L MCH 23.5 L MCHC 30.8 L RDW 19.3 H Plt Count 66 L D MPV Not Reportable Absolute Nucleated RBC 0.000 Nucleated RBC % (auto) 0.0 PT 16.1 H INR 1.4 H Sodium 136 Potassium 5.0 Chloride 101 Carbon Dioxide 22 Anion Gap 18 BUN 94 H* Creatinine 1.84 H Estim Creat Clear Calc 60.5 Estimated GFR 40 POC Glucose Random Glucose 291 H D Calcium 8.8 01/01/21 11:17 WBC RBC Hgb Hct MCV MCH MCHC RDW Plt Count MPV Absolute Nucleated RBC Nucleated RBC % (auto) PT INR Sodium Potassium Chloride Carbon Dioxide Anion Gap BUN Creatinine Estim Creat Clear Calc Estimated GFR POC Glucose 221 H Random Glucose Calcium Microbiology Microbiology Results: Microbiology 12/29/20 14:59 Blood - Venous Blood Culture - Final Escherichia coli 12/29/20 14:59 Blood - Venous Blood Culture - Final Escherichia coli 12/29/20 19:26 Urine clean catch - Urine murillo top Urine Culture - Final Escherichia coli Pseudomonas aeruginosa Physical Exam Vital Signs: Vital Signs: Last Vital Signs Temp 95.4 F L 01/01/21 10:45 Pulse 65 01/01/21 10:45 Resp 20 01/01/21 10:45 BP 121/83 01/01/21 10:45 Pulse Ox 100 01/01/21 10:45 Body Mass Index 28.3 Const: General: cooperative and comfortable Resp: Effort & Inspection: normal respiratory effort Cardio: Rate: regular rate Rhythm: regular rhythm GI: Palpation (GI): Soft to palpation and nontender Assessment and Plan Assessment and plan (1) UTI (urinary tract infection): Problem details: He has no complaints He has UTI Status: Acute Assessment and Plan: Would finish po Levaquin total 21 days antibiotics Time Spent With Patient Time: Total time spent is greater than 50% in coordination of care (as documented) at patient's floor/unit and/or counseling patient: Time with patient: 15 - 24 minutes
== END 2021-01-01 16:29 | disposition home or self-care (01) | DRG 463 ==
LOC: HO.ED 14:08 → HO.EDOVER 23:32 → HO.IMC 12-30 09:51
PROVIDERS: Internal Medicine; Internal Medicine Nephrology; Nurse Practitioner Family; Physician Assistant Medical; Admitting Provider Hospitalist; Emergency Provider Emergency Medicine Emergency Medical Services; PCP Internal Medicine; Visit Provider Family Medicine
DX: N39.0 Urinary tract infection, site not specified (principal); R78.81 Bacteremia; K74.60 Unspecified cirrhosis of liver; K72.90 Hepatic failure, unspecified without coma; E11.9 Type 2 diabetes mellitus without complications; F11.220 Opioid dependence with intoxication, uncomplicated; F32.9 Major depressive disorder, single episode, unspecified; B96.20 Unspecified Escherichia coli [E. coli] as the cause of diseases classified elsewhere; I95.1 Orthostatic hypotension; F41.9 Anxiety disorder, unspecified; R91.1 Solitary pulmonary nodule; Z20.822 Contact with and (suspected) exposure to COVID-19; Z95.2 Presence of prosthetic heart valve; Z79.01 Long term (current) use of anticoagulants; Z79.4 Long term (current) use of insulin; Z79.82 Long term (current) use of aspirin; Z79.899 Other long term (current) drug therapy
CPT/HCPCS: 36415; 70450; 71046; 71250; 74176; 76775; 80048; 80076; 80307; 81001; 81003; 82077; 82140; 82550; 82947; 83605; 83735; 83880; 84156; 84300; 84484; 85025; 85027; 85610; 87040; 87077; 87086; 87088; 87186; 87205; 87635; 93005; 99285; J0696; J1956